=== PATIENT | female | born 1950 | race African-American/Black ===

== ENCOUNTER → 2017-11-30 | Outpatient (CLI) | payer MEDICARE, OTHER ==
[~2017-11-30] MED LIST: ACET-93 PO; ALBU8.5H2 IH; ALBU8.5H4 IH; ASP81CT PO; ASP81TEC PO; BENA1TAB4 PO; CARB15DR75 OP; CARB15DR75 OU; CARI350T PO; CEFD300C PO; CETI10TA17 PO; CIPR500T78 PO; EZET1TAB43 PO; FLC100T1 PO; FLUO10CA19 PO; FLUT9.9S NSEACH; GLBR5T PO; GLIM4TAB PO; GLMP4T PO; GUAI-150 PO; GUAI1TBM7 PO; HYDR-2889 PO; HYDR-3816 PO; HYDR1TAB66 PO; INSU100I10 SQ; INSU100V8 SQ; LBT200T PO; LISI1TAB10 PO; LISI1TAB8 PO; LORA10TA7 PO; MELO-195 PO; METO100T12 PO; MONT10TA21 PO; MTP50T PO; NEPA1.7D OD; NF-ESOM40C PO; NITR-65 PO; OXYC1TAB17 PO; PNT40TEC PO; PRED5DRO2I OD; TBR.3OP51 OD
--- NOTE | 2017-11-30 18:59 | Diagnostic Imaging Report ---
INDICATION: Pain. Two views were obtained. FINDINGS: The alignment is normal. There is no fracture or dislocation. There are mild degenerative changes. Soft tissues are unremarkable. IMPRESSION: Mild degenerative changes, otherwise unremarkable. Dictated by: Dictated on workstation # [id number]
== END ==
LOC: RAD 14:28
PROVIDERS: ATTEND Internal Medicine
DX: M16.11 Unilateral primary osteoarthritis, right hip (principal)
CPT/HCPCS: 73502

== ENCOUNTER 2018-06-01 09:54 | Emergency (ER) | payer MEDICARE, OTHER ==
[~2018-06-01] VITALS: Ht 154.9 cm; Wt 88.5 kg
[2018-06-01] MEDS ORDERED: D5 NS 1000 ML IV SOLUTION 1,000 ML IV ONE (10:30)
[2018-06-01 10:35] LABS: BASOPHILS # (AUTO) 0.1 10^3/uL (0.0-0.1); BASOPHILS % (AUTO) 1 % (0-10); EOSINOPHILS # (AUTO) 0.2 10^3/uL (0.0-0.3); EOSINOPHILS % (AUTO) 4 % (0-10); HEMATOCRIT 41 % (35-52); HEMOGLOBIN 13.2 G/DL (11.5-16.0); LYMPHOCYTES # (AUTO) 1.9 X 10^3 (1.0-4.0); LYMPHOCYTES % (AUTO) 34 % (12-44); MEAN CORPUSCULAR HEMOGLOBIN 27 PG (25-34); MEAN CORPUSCULAR HGB CONC 32 G/DL (32-36); MEAN CORPUSCULAR VOLUME 83 FL (80-99); MEAN PLATELET VOLUME 10.3 FL (7.4-10.4); MONOCYTES # (AUTO) 0.5 X 10^3 (0.0-1.0); MONOCYTES % (AUTO) 8 % (0-12); NEUTROPHILS % (AUTO) 54 % (42-75); PLATELET COUNT 231 10^3/uL (130-400); RED BLOOD COUNT 4.94 10^6/uL (4.35-5.85); RED CELL DISTRIBUTION WIDTH 12.9 % (10.0-14.5); WHITE BLOOD COUNT 5.6 10^3/uL (4.3-11.0)
[2018-06-01 10:47] LABS: ALANINE AMINOTRANSFERASE 14 U/L (0-55); ALBUMIN 4.2 GM/DL (3.2-4.5); ALKALINE PHOSPHATASE 91 U/L (40-136); BILIRUBIN,TOTAL 0.6 MG/DL (0.1-1.0); BUN/CREATININE RATIO 17; CALCIUM 9.8 MG/DL (8.5-10.1); CARBON DIOXIDE 25 MMOL/L (21-32); CHLORIDE 106 MMOL/L (98-107); GFR ESTIMATED 39; GLUCOSE 124 MG/DL (70-105); MAGNESIUM 1.9 MG/DL (1.8-2.4); POTASSIUM 3.8 MMOL/L (3.6-5.0); SODIUM 142 MMOL/L (135-145); TOTAL PROTEIN 7.6 GM/DL (6.4-8.2)
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
--- NOTE | 2018-06-01 11:02 | Diagnostic Imaging Report ---
CHEST 1 VIEW, AP/PA ONLY Indication: Weakness Comparison: 03/14/2016 Findings: No focal airspace disease in the visualized lungs. Please note that the posterior lower lobes are poorly evaluated by portable radiography. No pleural effusion or pneumothorax. Normal cardiomediastinal silhouette. Impression: No acute cardiopulmonary process by portable radiography. Dictated by: Dictated on workstation # [id number]
[2018-06-01 12:12] LABS: BILIRUBIN,URINE NEGATIVE (NEGATIVE); CLARITY,URINE SLIGHTLY CLOUDY; COLOR,URINE YELLOW; GLUCOSE, URINE (UA) NEGATIVE (NEGATIVE); KETONES,URINE NEGATIVE (NEGATIVE); LEUKOCYTE ESTERASE ,URINE 2+ (NEGATIVE); NITRITE,URINE POSITIVE (NEGATIVE); PH,URINE 6 (5-9); PROTEIN,URINE 1+ (NEGATIVE); UROBILINOGEN,URINE NORMAL (NORMAL)
[2018-06-01 12:21] LABS: BACTERIA,URINE LARGE /HPF
[2018-06-01] MEDS ORDERED: CIPR-226 PO (12:31)
[2018-06-01 12:48] VITALS: BP 173/86
== END 2018-06-01 12:48 | disposition home or self-care (01) ==
LOC: EDUNIT# 09:54 → ER 09:55
DX: R53.1 Weakness (principal); N39.0 Urinary tract infection, site not specified; N28.9 Disorder of kidney and ureter, unspecified; I10 Essential (primary) hypertension; K21.9 Gastro-esophageal reflux disease without esophagitis; E11.9 Type 2 diabetes mellitus without complications; Z87.448 Personal history of other diseases of urinary system; Z88.8 Allergy status to other drugs, medicaments and biological substances; Z91.048 Other nonmedicinal substance allergy status; Z82.49 Family history of ischemic heart disease and other diseases of the circulatory system; Z79.51 Long term (current) use of inhaled steroids; Z79.4 Long term (current) use of insulin; Z96.652 Presence of left artificial knee joint; Z90.710 Acquired absence of both cervix and uterus; Z87.01 Personal history of pneumonia (recurrent)
CPT/HCPCS: 36415; 71045; 80053; 81000; 82962; 83735; 84484; 85025; 87077; 87088; 87186; 93005; 93041

== ENCOUNTER 2018-08-02 11:16 | Emergency (ER) | payer OTHER, MEDICARE ==
[~2018-08-02] VITALS: Ht 154.9 cm; Wt 90.3 kg
[~2018-08-02 11:16] MED LIST changes: +CIPR-226 PO
[2018-08-02] MEDS ORDERED: ACETAMINOPHEN 500 MG TAB (TYLENOL) PO ONE (11:45)
--- NOTE | 2018-08-02 12:10 | NUR ---
FOOD TRAY SERVED TO PT
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
[2018-08-02 13:48] VITALS: BP 169/90
== END 2018-08-02 13:48 | disposition home or self-care (01) ==
LOC: EDUNIT# 11:16 → ER 11:17
DX: R20.0 Anesthesia of skin (principal); T45.7X5A Adverse effect of anticoagulant antagonists, vitamin K and other coagulants, initial encounter; E11.649 Type 2 diabetes mellitus with hypoglycemia without coma; J42 Unspecified chronic bronchitis; I10 Essential (primary) hypertension; K21.9 Gastro-esophageal reflux disease without esophagitis; Z88.1 Allergy status to other antibiotic agents; Z88.8 Allergy status to other drugs, medicaments and biological substances; Z79.4 Long term (current) use of insulin; Z90.710 Acquired absence of both cervix and uterus; Z87.01 Personal history of pneumonia (recurrent)
CPT/HCPCS: 82962

== ENCOUNTER → 2018-12-15 | Outpatient (CLI) | payer MEDICARE, OTHER ==
--- NOTE | 2018-12-15 14:25 | Diagnostic Imaging Report ---
PATIENT HISTORY: R05, COUGH. TECHNIQUE: Two views of the chest. COMPARISON: 06/01/2018. FINDINGS: The lung volumes are normal. No focal consolidation is seen. No large pleural effusion or pneumothorax is seen. The cardiomediastinal silhouette is normal in size and contour. No acute osseous abnormality is seen. IMPRESSION: No acute pulmonary abnormality seen. Dictated by: Dictated on workstation # [id number]
== END ==
LOC: RAD 11:11
PROVIDERS: ATTEND Internal Medicine
DX: R05 Cough (principal)
CPT/HCPCS: 71046

== ENCOUNTER 2018-12-16 14:58 | Observation (INO) | payer MEDICARE, OTHER ==
[~2018-12-16] VITALS: Ht 154.9 cm; Wt 90.3 kg
[2018-12-16] MEDS ORDERED: methylPREDNISolone 125 MG (Solu-MEDROL) VIAL IVP NR (15:15)
[2018-12-16 16:00] VITALS: BP 129/74
[2018-12-16 16:13] LABS: ABG BASE EXCESS 2.3 MMOL/L (-2.5-2.5); ABG OXYGEN SATURATION 94 % (94-100); ABG PCO2 44 MMHG (35-45); ABG PO2 66 MMHG (79-93); ABG TCO2 28.2 MMOL/L (21.0-31.0)
[2018-12-16 16:15] LABS: ALLENS TEST YES-POS; INSPIRED O2 RA; VENTILATOR NO
[2018-12-16] MEDS ORDERED: CATHETER FLUSH 10 ML SYR IV PRN (16:15)
[2018-12-16 16:16] LABS: PATIENT TEMP 97.6
--- NOTE | 2018-12-16 16:48 | Diagnostic Imaging Report ---
INDICATION: Wheezing COMPARISON: 12/15/2008 FINDINGS: Single frontal view of the chest demonstrates stable heart size and pulmonary vascularity. The lungs are well aerated and clear. No large pleural effusion or pneumothorax is seen. The visualized osseous structures show no acute abnormalities. IMPRESSION: 1. No acute cardiopulmonary process. Dictated by: Dictated on workstation # [id number]
[2018-12-16 17:00] VITALS: BP 104/72
--- NOTE | 2018-12-16 17:20 | Consultation-Cardiology ---
HPI-Cardiology Cardiology Consultation: Date of Consultation 12/16/18 Time Seen by a Provider: 18:10 Date of Admission Attending Physician Sharon Boo DO Admitting Physician Sharon Boo DO Consulting Physician MALA VILLANUEVA MD, MA, FACP, FACC, [facility] Physician requesting consult: Dr Boo HPI: Chief Complaint: Reason for consultation: Shortness of breath HPI 68 yo woman with increasing shortness of breath for the last several days. Has an intermittent cough that is mostly dry. Denies cp. Denies palp or syncope or significant leg swelling. Denies fever or chills. Has noted some wheezing with inspiration and expiration Review of Systems-Cardiology Review of Systems Constitutional: malaise, tiredness; No weight loss, No weight gain Eyes: No vision change Ears/Nose/Throat: No ear discharge, No nasal drainage, No recent hearing loss Respiratory: As described under HPI Cardiovascular: As described under HPI Gastrointestinal: No constipation, No diarrhea, No nausea, No vomiting Genitourinary: No dysuria, No hematuria, No urine frequency changes, No urine coloration changes Musculoskeletal: No back pain, No joint pain Skin: No rash, No ulcerations Psychiatric/Neurological: No seizure, No focal weakness, No syncope Hematologic: No bleeding abnormalities [id number] Hx Patient Social History Recent Foreign Travel: No Immunizations Up To Date Date of Pneumonia Vaccine: Jul 02, 2011 Date of Influenza Vaccine: Apr 29, 2014 Past Medical History PMH As described under Assessment. Family Medical History Family History: Cancer 03 FATHER (PROSTATE) Cataract 03 MOTHER Chest pain 03 MOTHER Congestive heart failure 03 FATHER Family history: Arthritis 03 FATHER 03 MOTHER Family history: Asthma 03 MOTHER Family history: Hypertension 03 FATHER 03 MOTHER Heart disease 03 FATHER Myocardial infarction 03 MOTHER Prostate cancer 03 FATHER Stroke 03 MOTHER No Family History of: Abdominal aortic aneurysm Trino's disease Alcoholism Aphasia Cancer of colon Congenital heart disease Cystic fibrosis Dementia Dysphagia Family history: Allergy Family history: Alzheimer's disease Family history: Breast disease Family history: Cardiovascular disease Family history: Coronary thrombosis Family history: Diabetes mellitus Family history: Gastrointestinal disease Family history: Glaucoma Family history: Osteoporosis Family history: Thyroid disorder Headache Hearing loss Hereditary disease History of - anemia History of - disorder History of - respiratory disease History of drug abuse Human immunodeficiency virus (HIV) seropositivity Hypercholesterolemia Infertile Kidney disease Malignant neoplasm of lung Parkinson's disease Psychotic disorder Seizure disorder Tuberculosis Visual impairment Allergies and Home Medications Allergies Coded Allergies: cefuroxime (Verified Allergy, Unknown, PATIENT HAS RECEIVED ROCEPHIN W/O ISSUE, 03/14/16) Uncoded Allergies: PAPER TAPE (Adverse Reaction, Unknown, 09/08/14) Home Medications Acetaminophen 500 Mg Tablet, 500-1,500 MG PO Q6H PRN for PAIN, (Reported) TAKES 1-3 (500 MG) TABLETS Albuterol 8.5 Gm Hfa.aer.ad, 2 PUFF IH Q6H PRN for WHEEZING, (Reported) Carboxymethylcellulose Sodium 15 Ml Drops, 1 DROP OU HS PRN for DRY EYES, (Reported) Carisoprodol 350 Mg Tablet, 350 MG PO BID PRN for MUSCLE SPASMS, (Reported) Ciprofloxacin HCl 250 Mg Tablet, 250 MG PO BID Prescribed by: CIARA RUFFIN on 06/01/18 1231 Fluticasone Propionate 9.9 Ml [place].susp, 1 SPRAY NSEACH HS, (Reported) Glimepiride 4 Mg Tablet, 8 MG PO HS, (Reported) TAKES 2 (4 MG) TABLETS Lisinopril/Hydrochlorothiazide 1 Tab Tablet, 2 TAB PO HS, (Reported) Loratadine 10 Mg Tablet, 10 MG PO HS, (Reported) Meloxicam 15 Mg Tablet, 15 MG PO HS, (Reported) Metoprolol Tartrate 100 Mg Tablet, 100 MG PO HS, (Reported) Montelukast Sodium 10 Mg Tablet, 10 MG PO HS, (Reported) Patient Home Medication List Home Medication List Reviewed: Yes Physical Exam-Cardiology Physical Exam Vital Signs/I&O 12/16/18 12/16/18 12/16/18 12/16/18 15:37 16:00 17:00 17:02 Temp 97.6 Pulse 65 73 66 Resp 18 21 B/P (MAP) 129/74 (92) 104/72 (83) Pulse Ox 97 95 97 O2 Delivery Room Air Room Air Room Air Capillary Refill : Constitutional: AAO x 3, well-developed, well-nourished HEENT: PERRL, EOMI, hearing is well preserved Neck: carotid pulses are 2 + bilaterally, with good upstrokes Respiratory: No accessory muscle use; other (good bilat air entry) Cardiovascular: regular rate-rhythm, S1 and S2, systolic murmur (faint NANCY at card base) Gastrointestinal: No tender; soft; No guarding, No rebound; audible bowel sounds Extremities: No clubbing, No cyanosis, No significant edema Neurologic/Psychiatric: oriented x 3, grossly intact, power is 5/5 both on sides Skin: No rash on exposed areas, No ulcerations on exposed areas Data Review Labs Laboratory Tests 12/16/18 16:05: Blood Gas Puncture Site L BRACH, Blood Gas Patient Temperature 97.6, Arterial Blood pH 7.40, Arterial Blood Partial Pressure CO2 44, Arterial Blood Partial Pressure O2 66L, Arterial Blood HCO3 27, Arterial Blood Total CO2 28.2, Arterial Blood Oxygen Saturation 94, Arterial Blood Base Excess 2.3, Malachi Test YES-POS, Blood Gas Ventilator Setting NO, Blood Gas Inspired Oxygen RA 12/16/18 17:19: Glucometer 131H 12/16/18 17:20: White Blood Count 7.3, Red Blood Count 4.57, Hemoglobin 12.2, Hematocrit 38, Mean Corpuscular Volume 84, Mean Corpuscular Hemoglobin 27, Mean Corpuscular Hemoglobin Concent 32, Red Cell Distribution Width 12.7, Platelet Count 208, Mean Platelet Volume 10.2, Neutrophils (%) (Auto) 58, Lymphocytes (%) (Auto) 32, Monocytes (%) (Auto) 7, Eosinophils (%) (Auto) 2, Basophils (%) (Auto) 1, Neutrophils # (Auto) 4.3, Lymphocytes # (Auto) 2.3, Monocytes # (Auto) 0.5, Eosinophils # (Auto) 0.2, Basophils # (Auto) 0.1, D-Dimer 0.47, Sodium Level 140, Potassium Level 3.3L, Chloride Level 103, Carbon Dioxide Level 28, Anion Gap 9, Blood Urea Nitrogen 26H, Creatinine 1.65H, Estimat Glomerular Filtration Rate 37, BUN/Creatinine Ratio 16, Glucose Level 122H, Calcium Level 9.7, Corrected Calcium 9.6, Total Bilirubin 0.4, Aspartate Amino Transf (AST/SGOT) 13, Alanine Aminotransferase (ALT/SGPT) 12, Alkaline Phosphatase 99, Troponin I < 0.028, B-Type Natriuretic Peptide 29.5, Total Protein 7.4, Albumin 4.1 Laboratory Tests 12/16/18 17:20 A/P-Cardiology Assessment/Admission Diagnosis Multifactorial dyspnea Acute bronchitis vs pneumonia, managed by the Medical Service Ac kidney injury (LAKESHA) 2 and hypokalemia (probably due to diuretics/vol depletion) Mild CAD and normal LVEF (60%) on card cath of 06/01/12 Echo of September 2015 reported LVEF 60%, mild MR & TR, normal PASP H/o hypertension H/o DM II Discussion and Recomendations * iv fluids * Replenish K * Monitor labs * Echo to eval for structural heart disease * Management of pulmonary disease is with Dr Boo Clinical Quality Measures DVT/VTE Risk/Contraindication: Risk Factor Score Per Nursin RFS Level Per Nursing on Admit: 3=High MALA VILLANUEVA MD FACP FACC [facility] Dec 16, 2018 17:20
[2018-12-16 17:28] LABS: BASOPHILS # (AUTO) 0.1 10^3/uL (0.0-0.1); BASOPHILS % (AUTO) 1 % (0-10); EOSINOPHILS # (AUTO) 0.2 10^3/uL (0.0-0.3); EOSINOPHILS % (AUTO) 2 % (0-10); HEMATOCRIT 38 % (35-52); HEMOGLOBIN 12.2 G/DL (11.5-16.0); LYMPHOCYTES # (AUTO) 2.3 X 10^3 (1.0-4.0); LYMPHOCYTES % (AUTO) 32 % (12-44); MEAN CORPUSCULAR HEMOGLOBIN 27 PG (25-34); MEAN CORPUSCULAR HGB CONC 32 G/DL (32-36); MEAN CORPUSCULAR VOLUME 84 FL (80-99); MEAN PLATELET VOLUME 10.2 FL (7.4-10.4); MONOCYTES # (AUTO) 0.5 X 10^3 (0.0-1.0); MONOCYTES % (AUTO) 7 % (0-12); NEUTROPHILS # (AUTO) 4.3 X 10^3 (1.8-7.8); NEUTROPHILS % (AUTO) 58 % (42-75); PLATELET COUNT 208 10^3/uL (130-400); RED CELL DISTRIBUTION WIDTH 12.7 % (10.0-14.5); WHITE BLOOD COUNT 7.3 10^3/uL (4.3-11.0)
[2018-12-16] MEDS: inSUlin ASPART (NovoLOG) 1 UNIT/0.01 ML (CHARGE PER UNIT) SC SCH ×2 (17:41→21:12)
[2018-12-16] MEDS ORDERED: ALPRAZolam 0.5 MG (XANAX) TAB PO PRN (17:45)
[2018-12-16] MEDS ORDERED: ACETAMINOPHEN 500 MG TAB (TYLENOL) PO PRN (17:45)
[2018-12-16] MEDS ORDERED: DOCUSATE SODIUM 100 MG (COLACE) CAP PO PRN (17:45)
[2018-12-16] MEDS ORDERED: ONDANSETRON 4 MG/2 ML (SDV) Z0FRAN IVP PRN (17:45)
[2018-12-16] MEDS ORDERED: MELATONIN 3 MG TABLET PO PRN (17:45)
[2018-12-16 17:50] LABS: ALANINE AMINOTRANSFERASE 12 U/L (0-55); ALBUMIN 4.1 GM/DL (3.2-4.5); ALKALINE PHOSPHATASE 99 U/L (40-136); BILIRUBIN,TOTAL 0.4 MG/DL (0.1-1.0); BUN/CREATININE RATIO 16; CALCIUM 9.7 MG/DL (8.5-10.1); CARBON DIOXIDE 28 MMOL/L (21-32); CHLORIDE 103 MMOL/L (98-107); CREATININE SERUM 1.65 MG/DL (0.60-1.30); GFR ESTIMATED 37; GLUCOSE 122 MG/DL (70-105); POTASSIUM 3.3 MMOL/L (3.6-5.0); SODIUM 140 MMOL/L (135-145); TOTAL PROTEIN 7.4 GM/DL (6.4-8.2)
[2018-12-16] MEDS: methylPREDNISolone 40 MG/ML (Solu-MEDROL) VIAL IV SCH ×2 (18:12→23:20)
--- NOTE | 2018-12-16 18:19 | NUR ---
XOCHILT FOOTE admitted to room CU6-1, with an admitting diagnosis of sob, on 12/16/18 from ICU via wheelchair, accompanied by staff.XOCHILT FOOTE introduced to surroundings, call light, bed controls, phone, TV, temperature control, lights, meal times, smoking policy, visitor policy, side rail policy, bathrooms and showers. Patient Rights given to patient in the handbook. XOCHILT FOOTE verbalizes understanding that [facility] is not responsible for the loss or damage to any personal effects or valuables that are kept in the patients posession during their hospitalization. The following Patient Care Plans and discharge were discussed with the patient and family present (). XOCHILT FOOTE verbalizes understanding of Interdisciplinary Patient Education. Patient and family were informed about the Rapid Response Team and its purpose.
[2018-12-16] MEDS ORDERED: KCL 20 MEQ TAB (K-DUR) PO NR (19:00)
[2018-12-16] MEDS: NS IV 1000 ML 1,000 ML IV SCH (19:23)
[2018-12-16] MEDS: RT-BUDESONIDE NEBS 0.5 MG/2ML (PULMICORT) AMP INH SCH (19:24)
[2018-12-16] MEDS: RT-ALBUTEROL SULF 2.5 MG/3 ML PRE-MIX VIAL INH SCH ×2 (19:24→22:33)
--- OUTSIDE RECORDS SUMMARY | 2018-12-16 19:53 | XMS REPORT | Continuity of Care Document ---
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 Emergency JOSEFINA PERALTA [facility] ER FACIAL NUMBNESS [id number] 06/01/2018 09:55:00 06/01/2018 12:48:00 DIS Emergency CIARA SILVA MD [facility] ER DIZZINESS [id number] 11/30/2017 14:28:00 11/30/2017 23:59:59 CLS Outpatient KAREN BERMUDEZ DO [facility] RAD PAIN IN RIGHT HIP [id number] 03/13/2016 15:54:00 03/15/2016 09:32:00 DIS Inpatient KAREN BERMUDEZ DO [facility] 4TH PNEUMONIA [id number] 02/01/2016 09:11:00 02/01/2016 23:59:59 CLS Outpatient BEN ROY MD [facility] RAD CONGESTION [id number] 11/14/2015 07:16:00 11/14/2015 23:59:59 CLS Outpatient CHAVA GUZMAN DO [facility] RT COUGH,EXCESSIVE SLEEPINESS,SNORING, OBESITY [id number] 10/22/2015 11:07:00 10/22/2015 23:59:59 CLS Outpatient BEN ROY MD [facility] CARD ABNORMAL CHEST XRAY, PULMONARY HTN [id number] 10/04/2015 14:26:00 10/04/2015 23:59:59 CLS Outpatient BEN ROY MD [facility] RAD INTRACTABLE COUGH,HX OF PNEUMONIA [id number] 12/04/2014 11:08:00 12/04/2014 13:00:00 DIS Emergency KESHA MOORE DO [facility] ER LOW BS [id number] 10/12/2014 10:22:00 10/12/2014 14:46:00 DIS Outpatient CHAVA HAILE PA-C [facility] REHAB S/P L TKA [id number] 04/18/2014 18:28:00 04/18/2014 20:13:00 DIS Emergency SOCO BILLINGSLEY, POLY Mahmood [facility] ER FALL; L HIP PAIN [id number] 10/18/2013 10:21:00 10/20/2013 08:50:00 DIS Inpatient MANUELA BILLINGSLEY, BEN Paul [facility] 4TH PNEUMONIA,HYPOGLYCIMIA [id number] 07/23/2013 03:59:00 07/23/2013 05:20:00 DIS Emergency KUN BILLINGSLEY, INDIRA Vega [facility] ER L EYE PAIN [id number] 02/23/2013 21:00:00 02/23/2013 23:32:00 DIS Emergency KESHA MOORE DO [facility] ER WEAKNESS [id number] 12/15/2018 11:11:00 ACT Outpatient KAREN BERMUDEZ DO [facility] RAD COUGH [id number] 09/09/2014 13:14:00 Document Registration [id number] 02/19/2011 15:22:00 Document Registration [id number] 02/19/2011 11:12:00 Document Registration [email or web address] 12/04/2014 11:08:52 ACT Document Registration
[2018-12-16 20:00] VITALS: BP 148/83
[2018-12-16] MEDS: HYDROCODONE/CHLOR 10MG/5 ML (TUSSIONEX SUSP) 5ML UDC PO SCH (20:31)
[2018-12-16] MEDS: SENNA W/DOCUSATE (SENOKOT S) TABLET PO SCH (20:31)
[2018-12-16] MEDS ORDERED: methylPREDNISolone 125 MG (Solu-MEDROL) VIAL IM NR (21:00)
[2018-12-16] MEDS: CATHETER FLUSH 10 ML SYR IV SCH (21:13)
[2018-12-17] VITALS: BP 147/69
[2018-12-17] MEDS: RT-ALBUTEROL SULF 2.5 MG/3 ML PRE-MIX VIAL INH SCH ×3 (03:13→13:15)
[2018-12-17 04:08] VITALS: BP 132/61
[2018-12-17] MEDS: CATHETER FLUSH 10 ML SYR IV SCH (05:06)
[2018-12-17] MEDS: methylPREDNISolone 40 MG/ML (Solu-MEDROL) VIAL IV SCH (05:06)
[2018-12-17] MEDS: NS IV 1000 ML 1,000 ML IV SCH (05:06)
[2018-12-17 06:11] LABS: BASOPHILS % (AUTO) 0 % (0-10); EOSINOPHILS % (AUTO) 0 % (0-10); HEMATOCRIT 39 % (35-52); HEMOGLOBIN 12.6 G/DL (11.5-16.0); LYMPHOCYTES # (AUTO) 0.6 X 10^3 (1.0-4.0); LYMPHOCYTES % (AUTO) 11 % (12-44); MEAN CORPUSCULAR HEMOGLOBIN 26 PG (25-34); MEAN CORPUSCULAR HGB CONC 32 G/DL (32-36); MEAN CORPUSCULAR VOLUME 82 FL (80-99); MEAN PLATELET VOLUME 10.5 FL (7.4-10.4); MONOCYTES % (AUTO) 0 % (0-12); NEUTROPHILS # (AUTO) 4.9 X 10^3 (1.8-7.8); NEUTROPHILS % (AUTO) 89 % (42-75); PLATELET COUNT 193 10^3/uL (130-400); RED CELL DISTRIBUTION WIDTH 12.6 % (10.0-14.5); WHITE BLOOD COUNT 5.5 10^3/uL (4.3-11.0)
[2018-12-17] MEDS: inSUlin ASPART (NovoLOG) 1 UNIT/0.01 ML (CHARGE PER UNIT) SC SCH (06:21)
--- NOTE | 2018-12-17 06:22 | NUR ---
PATIENT'S BLOOD SUGAR THIS MORNING IS 453. PATIENT REFUSING SLIDING SCALE INSULIN. PATIENT DID EAT A SNACK AT APPROXIMATELY 0400. DR BERMUDEZ NOTIFIED OF BLOOD SUGAR AND PATIENT REFUSAL OF INSULIN. NNO.
[2018-12-17 06:35] LABS: ALBUMIN 3.9 GM/DL (3.2-4.5); BILIRUBIN,TOTAL 0.4 MG/DL (0.1-1.0); CALCIUM 9.4 MG/DL (8.5-10.1); CREATININE SERUM 1.62 MG/DL (0.60-1.30); POTASSIUM 4.4 MMOL/L (3.6-5.0); TOTAL PROTEIN 7.2 GM/DL (6.4-8.2)
[2018-12-17] MEDS ORDERED: inSUlin ASPART (NovoLOG) 1 UNIT/0.01 ML (CHARGE PER UNIT) SC NR (07:15)
[2018-12-17 08:00] VITALS: BP 163/77
[2018-12-17] MEDS: RT-BUDESONIDE NEBS 0.5 MG/2ML (PULMICORT) AMP INH SCH ×2 (08:10→13:14)
[2018-12-17] MEDS ORDERED: LISI1TAB8 PO (08:44)
[2018-12-17] MEDS ORDERED: POLY1DRO OU (08:44)
[2018-12-17] MEDS ORDERED: MELO15TA39 PO (08:44)
[2018-12-17] MEDS ORDERED: RT-ALBUINH IH (08:44)
[2018-12-17] MEDS ORDERED: GLIM4TAB PO (08:44)
[2018-12-17] MEDS: SENNA W/DOCUSATE (SENOKOT S) TABLET PO SCH (09:07)
[2018-12-17] MEDS: HYDROCODONE/CHLOR 10MG/5 ML (TUSSIONEX SUSP) 5ML UDC PO SCH (09:08)
--- NOTE | 2018-12-17 09:42 | NUR ---
SPOKE WITH PATIENT ABOUT HER MEDICATIONS SHE WAS ABLE TO LIST THEM, I ALSO CALLED RAKESH TO VERIFY. RAKESH FILLED: 08-11-18 GLIMEPIRIDE 4 MG BID #180 (PT INDICATED HER DOSE DECREASED TO QD) 08-11-18 LISINOPRIL /HCTZ 20/12.5MG BID #180 08-11-18 METOPROLOL TART 100MG #90/90 DAY SUPPLY- IF MORNING BLOOD PRESSURE IS OVER 140 SHE TAKES 1/2 TABLET IN THE MORNING AND 1/2 TABLET AT BEDTIME- IF BP IS NORMAL SHE TAKE A WHOLE TABLET AT BEDTIME 01-28-18 SOMA 350MG #30 BID (TAKES HS PRN) PATIENT REPORTS TAKING THE FOLLOWING MEDICATIONS HOWEVER RAKESH DID NOT HAVE RECENT FILL DATES: FLONASE 2 SPRAYS EACH NOSTRIL DAILY PRN LORATADINE 10MG ONCE DAILY PRN MELOXICAM 15MG 1 TABLET ONCE DAILY FOR 2 WEEKS, THEN STOP FOR 2 WEEKS THEN REPEAT MONTELUKAST 10MG ONCE DAILY PRN ALBUTEROL INHALER 2 PUFFS PRN OTC MEDICATIONS: TYLENOL 500MG- 2 TABLETS EVERY 6 HOURS NEEDED REPHRESH EYE DROPS 1 DROP IN BOTH EYES THREE TIMES DAILY NEEDED FOR DRY EYES
--- NOTE | 2018-12-17 11:05 | Short Stay Summary-Hospitalist ---
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 [facility] who has a past medical history of asthma and diabetes who presented to my office with shortness of breath and cough and severe difficulty breathing. She was found to have respiratory insufficiency so she was admitted to the ICU for observation but improved immensely with breathing treatments. She was unable to have an IV placed due to poor vascular access so Solu-Medrol was given IM. Cardiology saw her in consultation for cardiac risk stratification. Patient feels much better has no coughing does need her muscle relaxant for her back and did tell me that she was very stressed out and disturbed since her son announced that he was leaving his family and moving in with a new female partner. She was very upset about this seemed to cause respiratory insufficiency. Overall blood sugars remain elevated due to Solu-Medrol but she will close follow-up with me in my clinic after cardiology completes their testing today. Source: patient Exam Limitations: no limitations Date Seen 12/17/18 Time Seen by a Provider: 10:30 Attending Physician Sharon Boo DO PCP Sharon Boo DO Referring Physician Date of Admission Dec 16, 2018 at 15:28 Home Medications & Allergies Home Medications Reviewed patient Home Medication Reconciliation performed by pharmacy medication reconciliations land mobile radio technician and/or nursing. Patients Allergies have been reviewed. 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) Smoking Status: Never a Smoker Recent Foreign Travel: No Contact w/other who traveled: No Recent Hopitalizations: No Immunizations Up To Date Date of Pneumonia Vaccine: Jul 02, 2011 Date of Influenza Vaccine: Apr 29, 2014 Past Medical History Surgeries: Cardiac, Eye Surgery, Gallbladder, Hysterectomy, Joint Replacement, Orthopedic Respiratory: Asthma, Pneumonia Cardiac: Hypertension Reproductive: No Sexually Transmitted Disease: No Hysterectomy Genitourinary: Bladder Infection Gastrointestinal: Gastroesophageal Reflux Musculoskeletal: Chronic Back Pain Endocrine: Diabetes, Insulin dep HEENT: Cataract History of Blood Disorders: No Family History Cancer 03 FATHER (PROSTATE) Cataract 03 MOTHER Chest pain 03 MOTHER Congestive heart failure 03 FATHER Family history: Arthritis 03 FATHER 03 MOTHER Family history: Asthma 03 MOTHER Family history: Hypertension 03 FATHER 03 MOTHER Heart disease 03 FATHER Myocardial infarction 03 MOTHER Prostate cancer 03 FATHER Stroke 03 MOTHER No Family History of: Abdominal aortic aneurysm [place]'s disease Alcoholism Aphasia Cancer of colon Congenital heart disease Cystic fibrosis Dementia Dysphagia Family history: Allergy Family history: Alzheimer's disease Family history: Breast disease Family history: Cardiovascular disease Family history: Coronary thrombosis Family history: Diabetes mellitus Family history: Gastrointestinal disease Family history: Glaucoma Family history: Osteoporosis Family history: Thyroid disorder Headache Hearing loss Hereditary disease History of - anemia History of - disorder History of - respiratory disease History of drug abuse Human immunodeficiency virus (HIV) seropositivity Hypercholesterolemia Infertile Kidney disease Malignant neoplasm of lung Parkinson's disease Psychotic disorder Seizure disorder Tuberculosis Visual impairment Review of Systems Constitutional: see HPI, weakness EENTM: no symptoms reported Respiratory: short of breath Cardiovascular: no symptoms reported Gastrointestinal: no symptoms reported Genitourinary: no symptoms reported Musculoskeletal: no symptoms reported Skin: no symptoms reported Psychiatric/Neurological: Anxiety All Other Systems Reviewed Negative Unless Noted: Yes Physical Exam Physical Exam Vital Signs Vital Signs - First Documented 12/16/18 12/16/18 15:37 16:00 Temp 97.6 Pulse 65 Resp 18 B/P (MAP) 129/74 (92) Pulse Ox 97 O2 Delivery Room Air Capillary Refill : Height, Weight, BMI Height: 5'1.00" Weight: 199lbs. 1.6oz. 90.559438mq; 37.6 BMI Method:Stated General Appearance: No Apparent Distress, WD/WN, Chronically ill Eyes: Bilateral Eye Normal Inspection, Bilateral Eye PERRL HEENT: PERRL/EOMI, TMs Normal, Normal ENT Inspection, Pharynx Normal Neck: Full Range of Motion, Normal Inspection, Non Tender, Supple, Carotid Bruit Respiratory: Chest Non Tender, Lungs Clear, Normal Breath Sounds, No Accessory Muscle Use, No Respiratory Distress, Accessory Muscle Use (now resolved), Respiratory Distress (now resolved), Wheezing (now resolved) Cardiovascular: Regular Rate, Rhythm, No Edema, No Gallop, No JVD, No Murmur, Normal Peripheral Pulses Gastrointestinal: Normal Bowel Sounds, No Organomegaly, No Pulsatile Mass, Non Tender, Soft Back: Normal Inspection, No CVA Tenderness, No Vertebral Tenderness Extremity: Normal Capillary Refill, Normal Inspection, Normal Range of Motion, Non Tender, No Calf Tenderness, No Pedal Edema Neurologic/Psychiatric: Alert, Oriented x3, No Motor/Sensory Deficits, Normal Mood/Affect Skin: Normal Color, Warm/Dry Lymphatic: No Adenopathy Results Results/Procedures Labs Laboratory Tests 12/16/18 17:20 12/17/18 05:51 Patient resulted labs reviewed. Short Stay Diagnosis Discharge Diagnosis-Short Stay Admission Diagnosis Assessment: Severe respiratory insufficiency now resolved Asthma exacerbation now resolved Hyperglycemia due to steroids Hypertension Hyperlipidemia Pneumonia in the past chest x-ray negative Final Discharge Diagnosis Assessment: Severe respiratory insufficiency now resolved Asthma exacerbation now resolved Hyperglycemia due to steroids Hypertension Hyperlipidemia Pneumonia in the past chest x-ray negative Conclusion Plan Plan: Discharge home once cardiology has completed her testing for risk stratification Appreciate cardiology Respiratory insufficiency completely resolved Diagnosis/Problems Diagnosis/Problems (1) Wheezing Status: Acute (2) Acute hyperglycemia Status: Acute (3) Diabetes mellitus Status: Chronic Qualifiers: Qualified Codes: E11.9 - Type 2 diabetes mellitus without complications (4) Asthma attack Status: Acute Qualifiers: (5) Generalized weakness Status: Acute Clinical Quality Measures DVT/VTE Risk/Contraindication: Risk Factor Score Per Nursin RFS Level Per Nursing on Admit: 3=High SHARON BOO DO Dec 17, 2018 11:05
[2018-12-17] MEDS ORDERED: RT-ALBUTEROL SULF 2.5 MG/3 ML PRE-MIX VIAL IH PRN (11:15)
[2018-12-17] MEDS ORDERED: LORATADINE (CLARITIN) 10 MG TAB PO PRN (11:15)
[2018-12-17] MEDS ORDERED: inSUlin (REGULAR) HUMAN 1 UNIT/0.01 ML (CHARGE PER UNIT) SC NR (11:15)
[2018-12-17] MEDS ORDERED: MELOXICAM 7.5 MG (MOBIC) TABLET PO SCH (11:45)
[2018-12-17] MEDS ORDERED: ACETAMINOPHEN 500 MG TAB (TYLENOL) PO PRN (11:45)
[2018-12-17] MEDS ORDERED: CARISOPRODOL 350 MG (SOMA) TAB PO PRN (11:45)
[2018-12-17] MEDS ORDERED: ARTIFICAL TEARS 0.4 ML UNIT DOSE (REFRESH PLUS) OU PRN (11:45)
[2018-12-17 12:00] VITALS: BP 163/77
--- NOTE | 2018-12-17 13:15 | NUR ---
patient did not get her Pulmicort right after her 0600 Albuterol svn bt due to RT was called away to go to CT with a critical patient from ICU; patient also did not get her 1000 due to RT's both were with a critical patient that was getting intubated and then RT Brunilda had to go down to CT with him again.
[2018-12-17 14:16] VITALS: BP 163/77
--- NOTE | 2018-12-17 15:28 | Progress Note-Cardiology ---
Cardiology SOAP Progress Note Subjective: Shortness of breath better No cp or palp or syncope Objective: I&O/Vital Signs 12/17/18 12/17/18 12/17/18 12/17/18 03:48 04:08 08:00 08:00 Temp 97.8 98.1 Pulse 96 92 Resp 18 18 B/P (MAP) 132/61 (84) 163/77 (105) Pulse Ox 93 97 O2 Delivery Room Air Room Air Room Air Room Air 12/17/18 12/17/18 12/17/18 08:10 12:00 14:16 Temp 98.1 Pulse 92 92 Resp 18 18 B/P (MAP) 163/77 (105) 163/77 Pulse Ox 94 97 97 O2 Delivery Room Air Room Air Room Air 12/17/18 00:00 Intake Total 700 ml Balance 700 ml Weight (Pounds): 199 Weight (Ounces): 1.6 Weight (Calculated Kilograms): 90.189911 Constitutional: AAO x 3, well-developed, well-nourished Respiratory: No accessory muscle use; other (good bilat air entry) Cardiovascular: regular rate-rhythm, S1 and S2, systolic murmur (faint NANCY at card base) Gastrointestional: No tender; soft; No guarding, No rebound; audible bowel sounds Extremities: No clubbing, No cyanosis, No significant edema Neurologic/Psychiatric: oriented x 3, grossly intact, power is 5/5 both on sides Skin: No rash on exposed areas, No ulcerations on exposed areas Results/Procedures: Labs Laboratory Tests 12/16/18 16:05: Blood Gas Puncture Site L BRACH, Blood Gas Patient Temperature 97.6, Arterial Blood pH 7.40, Arterial Blood Partial Pressure CO2 44, Arterial Blood Partial Pressure O2 66L, Arterial Blood HCO3 27, Arterial Blood Total CO2 28.2, Arterial Blood Oxygen Saturation 94, Arterial Blood Base Excess 2.3, Malachi Test YES-POS, Blood Gas Ventilator Setting NO, Blood Gas Inspired Oxygen RA 12/16/18 17:19: Glucometer 131H 12/16/18 17:20: White Blood Count 7.3, Red Blood Count 4.57, Hemoglobin 12.2, Hematocrit 38, Mean Corpuscular Volume 84, Mean Corpuscular Hemoglobin 27, Mean Corpuscular Hemoglobin Concent 32, Red Cell Distribution Width 12.7, Platelet Count 208, Mean Platelet Volume 10.2, Neutrophils (%) (Auto) 58, Lymphocytes (%) (Auto) 32, Monocytes (%) (Auto) 7, Eosinophils (%) (Auto) 2, Basophils (%) (Auto) 1, Neutrophils # (Auto) 4.3, Lymphocytes # (Auto) 2.3, Monocytes # (Auto) 0.5, Eosinophils # (Auto) 0.2, Basophils # (Auto) 0.1, D-Dimer 0.47, Sodium Level 140, Potassium Level 3.3L, Chloride Level 103, Carbon Dioxide Level 28, Anion Gap 9, Blood Urea Nitrogen 26H, Creatinine 1.65H, Estimat Glomerular Filtration Rate 37, BUN/Creatinine Ratio 16, Glucose Level 122H, Calcium Level 9.7, Corrected Calcium 9.6, Total Bilirubin 0.4, Aspartate Amino Transf (AST/SGOT) 13, Alanine Aminotransferase (ALT/SGPT) 12, Alkaline Phosphatase 99, Troponin I < 0.028, B-Type Natriuretic Peptide 29.5, Total Protein 7.4, Albumin 4.1 12/16/18 20:56: Glucometer 131H 12/17/18 05:51: White Blood Count 5.5, Red Blood Count 4.80, Hemoglobin 12.6, Hematocrit 39, Mean Corpuscular Volume 82, Mean Corpuscular Hemoglobin 26, Mean Corpuscular Hemoglobin Concent 32, Red Cell Distribution Width 12.6, Platelet Count 193, Mean Platelet Volume 10.5H, Neutrophils (%) (Auto) 89H, Lymphocytes (%) (Auto) 11L, Monocytes (%) (Auto) 0, Eosinophils (%) (Auto) 0, Basophils (%) (Auto) 0, Neutrophils # (Auto) 4.9, Lymphocytes # (Auto) 0.6L, Monocytes # (Auto) 0.0, Eosinophils # (Auto) 0.0, Basophils # (Auto) 0.0, Sodium Level 132L, Potassium Level 4.4, Chloride Level 98, Carbon Dioxide Level 19L, Anion Gap 15H, Blood Urea Nitrogen 30H, Creatinine 1.62H, Estimat Glomerular Filtration Rate 38, BUN/Creatinine Ratio 19, Glucose Level 590*H, Calcium Level 9.4, Corrected Calcium 9.5, Total Bilirubin 0.4, Aspartate Amino Transf (AST/SGOT) 10, Alanine Aminotransferase (ALT/SGPT) 15, Alkaline Phosphatase 121, Total Protein 7.2, Albumin 3.9 12/17/18 05:56: Glucometer 453*H 12/17/18 06:59: Glucometer 578*H 12/17/18 11:54: Glucometer 381H Laboratory Tests 12/16/18 17:20 12/17/18 05:51 A/P: Assessment: Multifactorial dyspnea Acute bronchitis vs pneumonia, managed by the Medical Service Ac kidney injury (LAKESHA) 2 and hypokalemia (probably due to diuretics/vol depletion), unchanged, managed by Dr Boo Uncontrolled DM II, managed by Dr Boo Mild CAD and normal LVEF (60%) on card cath of 06/01/12 Echo of 12/17/18: LVEF 75-80%, mild conc LVH, grade 1 lee dysfunction, PASP 30 mmHg H/o hypertension Plan: * Cardiac status is clinically stable * Multiple medical issues (see above) being managed by MALA Sanchez MD FACP FAC CCDS Dec 17, 2018 15:28
[2018-12-17] MEDS ORDERED: meTOprolol TARTRATE 50 MG (LOPRESSOR) TAB PO SCH (21:00)
[2018-12-17] MEDS ORDERED: lisINopril 20 MG (PRINIVIL) TABLET PO SCH (21:00)
[2018-12-17] MEDS ORDERED: MONTELUKAST 10 MG (SINGULAIR) TAB PO PRN (21:00)
[2018-12-18] MEDS ORDERED: GLIMEPIRIDE 4 MG (AMARYL) TAB PO SCH (06:30)
[2018-12-18] MEDS ORDERED: FLUTICASONE NASAL SPRAY (FLONASE) 16 GM BTL NS PRN (21:00)
== END 2018-12-17 14:16 | disposition home or self-care (01) ==
LOC: ICU 15:28 → 4TH 17:50
PROVIDERS: ADMIT Internal Medicine; ATTEND Internal Medicine
DX: J45.901 Unspecified asthma with (acute) exacerbation (principal); R06.89 Other abnormalities of breathing; E11.65 Type 2 diabetes mellitus with hyperglycemia; T38.0X5A Adverse effect of glucocorticoids and synthetic analogues, initial encounter; N17.9 Acute kidney failure, unspecified; E87.6 Hypokalemia; I25.10 Atherosclerotic heart disease of native coronary artery without angina pectoris; I10 Essential (primary) hypertension; E78.5 Hyperlipidemia, unspecified; K21.9 Gastro-esophageal reflux disease without esophagitis; R53.1 Weakness; Z87.01 Personal history of pneumonia (recurrent); Z79.84 Long term (current) use of oral hypoglycemic drugs; Z79.899 Other long term (current) drug therapy
CPT/HCPCS: 36415; 71045; 80053; 82805; 82962; 83880; 84484; 85025; 85379; 93306; 94640; 94664; 94760

== ENCOUNTER 2019-06-15 12:59 | Emergency (ER) | payer MEDICARE, OTHER ==
[~2019-06-15] VITALS: Ht 155 cm; Wt 88.6 kg
[~2019-06-15 12:59] MED LIST changes: +MELO15TA39 PO; +POLY1DRO OU; +RT-ALBUINH IH
[2019-06-15] MEDS ORDERED: DEXAMETHASONE 10 MG/ML (DECADRON) 1 ML VIAL IM ONE (14:00)
--- NOTE | 2019-06-15 14:53 | ED Cough/URI ---
General Chief Complaint: Cough/Cold/Flu Symptoms Stated Complaint: SORE THROAT, COUGH FOR A WEEK Nursing Triage Note: Pt amb to triage with c/o cough, congestion, and fever. Pt reports consistant symptoms for approx x1wk. Pt reports to have been seen by her PCP on 06/13/19 (prescribed cough syrup). Pt reports upon rise on this day, she began to experience nuchal rigidity that increases upon movement. Pt reports to take tylenol and iburpofen [facility]. Sepsis Screen: No Definite Risk History of Present Illness Date Seen by Provider: Jun 15, 2019 Time Seen by Provider: 13:15 Initial Comments 68-year-old -Al[place]ian female presents for cough and congestion since present for approximately one week. She reports intermittent fevers, she's been using Tylenol and ibuprofen to control those. She has an albuterol inhaler, she's been using it occasionally less than 2 times a day for coughing rate she denies any dyspnea. She was prescribed a cough medication by her primary care provider on 06/13/19. Timing/Duration: week Severity/Quality: mild, productive cough Prior Episodes/Possible Cause: occasional episodes Modifying Factors: Improves With Albuterol Inhaler Associated Symptoms: cough, fever/chills, muscle aches (neck and right trapezi us muscle) Allergies and Home Medications Allergies Coded Allergies: cefuroxime (Verified Allergy, Unknown, PATIENT HAS RECEIVED ROCEPHIN W/O ISSUE, 03/14/16) Uncoded Allergies: PAPER TAPE (Adverse Reaction, Unknown, 09/08/14) Home Medications Acetaminophen 500 Mg Tablet, 1,000 MG PO Q6H PRN for PAIN-MILD, (Reported) Albuterol Sulfate 1 Puff Puff, 1-2 PUFF IH Q4H PRN for SHORTNESS OF BREATH, (Reported) Carisoprodol 350 Mg Tablet, 350 MG PO HS PRN for MUSCLE SPASMS, (Reported) Fluticasone Propionate 9.9 Ml [place].susp, 1 SPRAY NSEACH HS PRN for ALLERGIES, (Reported) Glimepiride 4 Mg Tablet, 4 MG PO DAILY, (Reported) Lisinopril/Hydrochlorothiazide 1 Each Tablet, 1 TAB PO BID, (Reported) LAST FILLED #180 ON 08-11-2018 Loratadine 10 Mg Tablet, 10 MG PO DAILY PRN for ALLERGIES, (Reported) Meloxicam 15 Mg Tablet, 15 MG PO UD, (Reported) TAKES 1 TABLET DAILY FOR 2 WEEKS, THEN IS OFF FOR 2 WEEKS- THEN REPEATS Metoprolol Tartrate 100 Mg Tablet, PO UD, (Reported) LAST FILLED #90 ON 08-11-2018 1/2 TABLET TWICE DAILY IF AM BLOOD PRESSURE IF <140, IF AM BLOOD PRESSURE IS <140 THEN TAKE WHOLE TABLET AT BEDTIME Montelukast Sodium 10 Mg Tablet, 10 MG PO HS PRN for ALLERGIES, (Reported) Polyvinyl Alcohol/Povidone/Pf 1 Each Droperette, 1 DROP OU TID PRN for dry eyes, (Reported) Patient Home Medication List Home Medication List Reviewed: Yes Review of Systems Review of Systems Constitutional: no symptoms reported, see HPI Respiratory: cough; No dyspnea on exertion; phlegm; No short of breath Cardiovascular: no symptoms reported, see HPI; No chest pain All Other Systems Reviewed Negative Unless Noted: Yes Past Xrxthuw-Ypwuyh-Pntltj Hx Past Med/Social Hx: Reviewed Nursing Past Med/Soc Hx Patient Social History Alcohol Use: Denies Use Recreational Drug Use: No Smoking Status: Never a Smoker 2nd Hand Smoke Exposure: No Recent Foreign Travel: No Contact w/Someone Who Travel: No Recent Infectious Disease Expo: No Recent Hopitalizations: No Physical Abuse: No Sexual Abuse: No Mistreated: No Fear: No Immunizations Up To Date Date of Pneumonia Vaccine: Jul 02, 2011 Date of Influenza Vaccine: Apr 29, 2014 Past Medical History Surgeries: Yes (jul 2014 left total knee, cataract) Cardiac, Eye Surgery, Gallbladder, Hysterectomy, Joint Replacement, Orthopedic Respiratory: Yes Pneumonia, Chronic Bronchitis Cardiac: Yes (heart cath with no intervention) Hypertension Neurological: No Reproductive Disorders: No 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 Sexually Transmitted Disease: No Bladder Infection Gastrointestinal: Yes Gastroesophageal Reflux Musculoskeletal: Yes (LEFT KNEE SCOPE,) Chronic Back Pain Endocrine: Yes Diabetes, Insulin dep Cataract Cancer: No Psychosocial: No Integumentary: No Blood Disorders: No Family Medical History Cancer 03 FATHER (PROSTATE) Cataract 03 MOTHER Chest pain 03 MOTHER Congestive heart failure 03 FATHER Family history: Arthritis 03 FATHER 03 MOTHER Family history: Asthma 03 MOTHER Family history: Hypertension 03 FATHER 03 MOTHER Heart disease 03 FATHER Myocardial infarction 03 MOTHER Prostate cancer 03 FATHER Stroke 03 MOTHER No Family History of: Abdominal aortic aneurysm Trino's disease Alcoholism Aphasia Cancer of colon Congenital heart disease Cystic fibrosis Dementia Dysphagia Family history: Allergy Family history: Alzheimer's disease Family history: Breast disease Family history: Cardiovascular disease Family history: Coronary thrombosis Family history: Diabetes mellitus Family history: Gastrointestinal disease Family history: Glaucoma Family history: Osteoporosis Family history: Thyroid disorder Headache Hearing loss Hereditary disease History of - anemia History of - disorder History of - respiratory disease History of drug abuse Human immunodeficiency virus (HIV) seropositivity Hypercholesterolemia Infertile Kidney disease Malignant neoplasm of lung Parkinson's disease Psychotic disorder Seizure disorder Tuberculosis Visual impairment Physical Exam Vital Signs - First Documented 06/15/19 13:10 Temp 36.8 Pulse 70 Resp 18 B/P (MAP) 152/77 (102) Pulse Ox 99 O2 Delivery Room Air Capillary Refill : Less Than 3 Seconds Height: 5'1.00" Weight: 199lbs. 1.6oz. 90.935084er; 36.00 BMI Method:Stated General Appearance: WD/WN, no apparent distress Eyes: Bilateral Eye Normal Inspection, Bilateral Eye PERRL, Bilateral Eye EOMI HEENT: PERRL/EOMI, normal ENT inspection, TMs normal, pharynx normal (with clear postnasal drainage) Neck: full range of motion, supple, normal inspection, tender lateral (right and right trapezius, no radiation to right shoulder or arm. ) Respiratory: chest non-tender, lungs clear, normal breath sounds Cardiovascular: normal peripheral pulses, regular rate, rhythm Gastrointestinal: normal bowel sounds, non tender, soft Neurologic/Psychiatric: no motor/sensory deficits, alert, normal mood/affect, oriented x 3 Skin: normal color, warm/dry Progress/Results/Core Measures Suspected Sepsis Recent Fever Within 48 Hours: Yes Infection Criteria Present: Suspected New Infection New/Unexplained Altered Menta: No Sepsis Screen: No Definite Risk SIRS Temperature: Pulse: 70 Respiratory Rate: 18 Blood Pressure 152 /77 Mean: 102 Results/Orders Micro Results Microbiology 06/15/19 Influenza Types A,B Antigen (DAVE) - Final, Complete My Orders Orders - LUIS EDUARDO WILKERSON Dexamethasone Injection (Decadron Inject (06/15/19 14:00) Influenza A And B Antigens (06/15/19 13:46) Medications Given in ED Current Medications Medications Dose Ordered Sig/Mihai Route Start Time Stop Time Status Last Admin Dose Admin Dexamethasone Sodium Phosphate 10 mg ONCE ONCE IM 06/15/19 14:00 06/15/19 14:01 DC 06/15/19 14:09 10 MG Vital Signs/I&O 06/15/19 06/15/19 13:10 14:11 Temp 36.8 Pulse 70 Resp 18 B/P (MAP) 152/77 (102) Pulse Ox 99 O2 Delivery Room Air Room Air Capillary Refill : Less Than 3 Seconds Blood Pressure Mean: 102 Departure Impression Primary Impression: Bronchitis Disposition: 01 HOME, SELF-CARE Condition: Improved Departure-Patient Inst. Decision time for Depature: 14:40 Referrals: KAREN BERMUDEZ DO (PCP/Family) Primary Care Physician Patient Instructions: Cough, Adult (DC), Acute Bronchitis, Adult (DC) Add. Discharge Instructions: Continue to use the cough medication as prescribed by your primary care provider. Take Mucinex one tablet twice daily with a full glass of water. Use your inhaler every 4 hours as needed for cough or shortness of air. Take antibiotics as prescribed. Follow-up with your primary care provider in one to 2 days if symptoms are not improving or worsen. Alternate between ibuprofen 600 mg and Tylenol 650 mg every 4 hours for pain or fever. Return to the emergency department for fever greater than 101 not relieved by Tylenol or ibuprofen, nausea and vomiting, or new urgent health care needs. All discharge instructions reviewed with patient and/or family. Voiced understanding. Scripts Prednisone (Prednisone) 20 Mg Tab 40 MG PO DAILY, #6 TAB 0 Refills Prov: LUIS EDUARDO WILKERSON 06/15/19 Azithromycin (Azithromycin) 250 Mg Tablet 250 MG PO UD, #6 TAB 0 Refills TAKE 2 TABLETS ON DAY ONE THEN TAKE 1 TABLET DAILY FOR FOUR MORE DAYS Prov: LUIS EDUARDO WILKERSON 06/15/19 Copy Copies To 1: KAREN BERMUDEZ AMY ARNP Jun 15, 2019 14:53
[2019-06-15] MEDS ORDERED: AZIT250T12 PO (14:55)
[2019-06-15] MEDS ORDERED: PRD20T PO (14:55)
[2019-06-15 14:58] VITALS: BP 144/86
== END 2019-06-15 14:58 | disposition home or self-care (01) ==
LOC: EDUNIT# 12:59 → ER 13:00
DX: J40 Bronchitis, not specified as acute or chronic (principal); I10 Essential (primary) hypertension; K21.9 Gastro-esophageal reflux disease without esophagitis; E11.9 Type 2 diabetes mellitus without complications; Z88.1 Allergy status to other antibiotic agents; Z88.8 Allergy status to other drugs, medicaments and biological substances; Z96.652 Presence of left artificial knee joint; Z79.51 Long term (current) use of inhaled steroids; Z90.710 Acquired absence of both cervix and uterus; Z82.49 Family history of ischemic heart disease and other diseases of the circulatory system; Z80.42 Family history of malignant neoplasm of prostate
CPT/HCPCS: 87804; 96372

== ENCOUNTER → 2019-06-27 | Outpatient (CLI) | payer MEDICARE ==
[~2019-06-27] MED LIST changes: +AZIT250T12 PO; +PRD20T PO; +RT-ALBUTEROL SULF 2.5 MG/3 ML PRE-MIX VIAL INH ONE
== END ==
LOC: RT 14:35
PROVIDERS: ATTEND Internal Medicine
DX: R06.2 Wheezing (principal)
CPT/HCPCS: 94060; 94726; 94729

== ENCOUNTER 2019-08-22 11:31 | Emergency (ER) | payer MEDICARE ==
[~2019-08-22] VITALS: Ht 154.9 cm; Wt 88.6 kg
[~2019-08-22 11:31] MED LIST changes: +GLIM4TAB5 PO; +LISI1TAB25 PO; -RT-ALBUTEROL SULF 2.5 MG/3 ML PRE-MIX VIAL INH ONE
--- NOTE | 2019-08-22 12:24 | ED Lower Extremity ---
General Chief Complaint: Trauma-Non Activation Stated Complaint: FALL Nursing Triage Note: AMB TO TRIAGE WITH WALKER REPORTS FELL AROUND [address] ON L KNEE. HAS HAD A KNEE REPLACEMENT. Nursing Sepsis Screen: No Definite Risk Source: patient Exam Limitations: no limitations History of Present Illness Date Seen by Provider: Aug 22, 2019 Time Seen by Provider: 12:22 Initial Comments To ER with pain in the left anterior knee after a fall. She is concerned because she has had a knee replacement on this side before. Onset: just prior to arrival Pain/Injury Location: left knee Method of Injury: fell Modifying Factors: Worse With Movement Allergies and Home Medications Allergies Coded Allergies: cefuroxime (Verified Allergy, Unknown, PATIENT HAS RECEIVED ROCEPHIN W/O ISSUE, 03/14/16) Uncoded Allergies: PAPER TAPE (Adverse Reaction, Unknown, 09/08/14) Home Medications Acetaminophen 500 Mg Tablet, 1,000 MG PO Q6H PRN for PAIN-MILD, (Reported) Albuterol Sulfate 1 Puff Puff, 1-2 PUFF IH Q4H PRN for SHORTNESS OF BREATH, (Reported) Azithromycin 250 Mg Tablet, 250 MG PO UD TAKE 2 TABLETS ON DAY ONE THEN TAKE 1 TABLET DAILY FOR FOUR MORE DAYS Prescribed by: LUIS EDUARDO WILKERSON on 06/15/19 1455 Carisoprodol 350 Mg Tablet, 350 MG PO HS PRN for MUSCLE SPASMS, (Reported) Fluticasone Propionate 9.9 Ml [place].susp, 1 SPRAY NSEACH HS PRN for ALLERGIES, (Reported) Glimepiride 4 Mg Tablet, 4 MG PO DAILY, (Reported) Lisinopril/Hydrochlorothiazide 1 Each Tablet, 1 TAB PO BID, (Reported) LAST FILLED #180 ON 08-11-2018 Loratadine 10 Mg Tablet, 10 MG PO DAILY PRN for ALLERGIES, (Reported) Meloxicam 15 Mg Tablet, 15 MG PO UD, (Reported) TAKES 1 TABLET DAILY FOR 2 WEEKS, THEN IS OFF FOR 2 WEEKS- THEN REPEATS Metoprolol Tartrate 100 Mg Tablet, PO UD, (Reported) LAST FILLED #90 ON 08-11-2018 1/2 TABLET TWICE DAILY IF AM BLOOD PRESSURE IF <140, IF AM BLOOD PRESSURE IS <140 THEN TAKE WHOLE TABLET AT BEDTIME Montelukast Sodium 10 Mg Tablet, 10 MG PO HS PRN for ALLERGIES, (Reported) Polyvinyl Alcohol/Povidone/Pf 1 Each Droperette, 1 DROP OU TID PRN for dry eyes, (Reported) Prednisone 20 Mg Tab, 40 MG PO DAILY Prescribed by: LUIS EDUARDO WILKERSON on 06/15/19 1830 Patient Home Medication List Home Medication List Reviewed: Yes Review of Systems Constitutional: see HPI EENTM: see HPI Respiratory: no symptoms reported Cardiovascular: no symptoms reported Genitourinary: no symptoms reported Musculoskeletal: see HPI Skin: no symptoms reported Psychiatric/Neurological: No Symptoms Reported Past Jqlmnqj-Cnpazb-Apbdyo Hx Patient Social History Alcohol Use: Denies Use Recreational Drug Use: No Smoking Status: Never a Smoker 2nd Hand Smoke Exposure: No Recent Foreign Travel: No Contact w/Someone Who Travel: No Recent Infectious Disease Expo: No Recent Hopitalizations: No Immunizations Up To Date Date of Pneumonia Vaccine: Jul 02, 2011 Date of Influenza Vaccine: Apr 29, 2014 Past Medical History Surgeries: Yes (jul 2014 left total knee, cataract) Cardiac, Eye Surgery, Gallbladder, Hysterectomy, Joint Replacement, Orthopedic Respiratory: Yes Pneumonia, Chronic Bronchitis Cardiac: Yes (heart cath with no intervention) Hypertension Neurological: No 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 Sexually Transmitted Disease: No Bladder Infection Gastrointestinal: Yes Gastroesophageal Reflux Musculoskeletal: Yes (LEFT KNEE SCOPE,) Chronic Back Pain Endocrine: Yes Diabetes, Insulin dep Cataract Cancer: No Psychosocial: No Integumentary: No Blood Disorders: No Family Medical History Cancer 03 FATHER (PROSTATE) Cataract 03 MOTHER Chest pain 03 MOTHER Congestive heart failure 03 FATHER Family history: Arthritis 03 FATHER 03 MOTHER Family history: Asthma 03 MOTHER Family history: Hypertension 03 FATHER 03 MOTHER Heart disease 03 FATHER Myocardial infarction 03 MOTHER Prostate cancer 03 FATHER Stroke 03 MOTHER No Family History of: Abdominal aortic aneurysm [place]'s disease Alcoholism Aphasia Cancer of colon Congenital heart disease Cystic fibrosis Dementia Dysphagia Family history: Allergy Family history: Alzheimer's disease Family history: Breast disease Family history: Cardiovascular disease Family history: Coronary thrombosis Family history: Diabetes mellitus Family history: Gastrointestinal disease Family history: Glaucoma Family history: Osteoporosis Family history: Thyroid disorder Headache Hearing loss Hereditary disease History of - anemia History of - disorder History of - respiratory disease History of drug abuse Human immunodeficiency virus (HIV) seropositivity Hypercholesterolemia Infertile Kidney disease Malignant neoplasm of lung Parkinson's disease Psychotic disorder Seizure disorder Tuberculosis Visual impairment Physical Exam Vital Signs Vital Signs - First Documented 08/22/19 12:09 Temp 36.8 Pulse 55 Resp 18 B/P (MAP) 128/71 (90) Pulse Ox 96 Capillary Refill : Less Than 3 Seconds Height, Weight, BMI Height: 5'1.00" Weight: 199lbs. 1.6oz. 90.453884uq; 36.00 BMI Method:Stated General Appearance: WD/WN, no apparent distress HEENT: PERRL/EOMI, normal ENT inspection Respiratory: no respiratory distress, no accessory muscle use Hips: bilateral hip non-tender, bilateral hip normal inspection, bilateral hip normal range of motion Legs: bilateral leg non-tender, bilateral leg normal inspection, bilateral leg normal range of motion Knees: right knee other (no ecchymosis or effusion minimal tenderness to palpation) Ankles: bilateral ankle non-tender, bilateral ankle normal inspection, bilater al ankle normal range of motion Feet: bilateral foot non-tender, bilateral foot normal inspection, bilateral foot normal range of motion Neurologic/Psychiatric: alert, normal mood/affect, oriented x 3 Skin: normal color, warm/dry Progress/Results/Core Measures Results/Orders My Orders Orders - DAYANARA WHITLOCK APRN Knee, Left, 3 Views (08/22/19 12:19) Vital Signs/I&O 08/22/19 12:09 Temp 36.8 Pulse 55 Resp 18 B/P (MAP) 128/71 (90) Pulse Ox 96 Blood Pressure Mean: 90 Departure Impression Primary Impression: Knee contusion Qualified Codes: S80.02XA - Contusion of left knee, initial encounter Disposition: HOME, SELF-CARE Condition: Stable Departure-Patient Inst. Decision time for Depature: 12:41 Referrals: KAREN BERMUDEZ DO (PCP/Family) Primary Care Physician Patient Instructions: Contusion (DC) DAYANARA WHITLOCK APRN Aug 22, 2019 12:23
--- NOTE | 2019-08-22 13:05 | Diagnostic Imaging Report ---
HISTORY: Left lateral knee pain after fall. COMPARISON: 04/26/2007 TECHNIQUE: 3 views of the left knee FINDINGS: There is a left total knee arthroplasty. Alignment appears normal. No hardware complication is seen. There is a small left knee joint effusion. There appear to be small joint bodies anteriorly. No acute fracture is seen. IMPRESSION: 1. Left total knee arthroplasty without hardware complication or acute osseous abnormality seen. 2. Small left knee joint effusion. Dictated by: Dictated on workstation # [id number]
[2019-08-22 13:11] VITALS: BP 128/71
== END 2019-08-22 13:13 | disposition home or self-care (01) ==
LOC: EDUNIT# 11:31 → ER 11:33
DX: S80.02XA Contusion of left knee, initial encounter (principal); I10 Essential (primary) hypertension; E11.9 Type 2 diabetes mellitus without complications; Z96.652 Presence of left artificial knee joint; Z88.1 Allergy status to other antibiotic agents; Z88.8 Allergy status to other drugs, medicaments and biological substances; Z79.51 Long term (current) use of inhaled steroids; Z79.52 Long term (current) use of systemic steroids; Z80.42 Family history of malignant neoplasm of prostate; Z82.49 Family history of ischemic heart disease and other diseases of the circulatory system; W19.XXXA Unspecified fall, initial encounter
CPT/HCPCS: 73562

== ENCOUNTER → 2020-04-10 | Outpatient (CLI) | payer MEDICARE ==
[~2020-04-10] MED LIST changes: +CATHETER FLUSH 10 ML SYR IV PRN; +HOLD METFORMIN - RECEIVED CONTRAST 20 ML VIAL IV SCH; +IOHEXOL 350 MG/ML 100 ML (OMNIPAQUE 350) VIAL IV ONE; -LISI1TAB25 PO; +LISI1TAB46 PO; +NS 100 ML (IVPB) BAG IV ONE
--- NOTE | 2020-04-10 14:34 | Diagnostic Imaging Report ---
PROCEDURE: CT sinuses without contrast TECHNIQUE: Multiple contiguous axial images were obtained through the sinuses without the use of intravenous contrast. Coronal and sagittal reformations were then performed. Auto Exposure Controls were utilized during the CT exam to meet ALARA standards for radiation dose reduction. INDICATION: Rhinorrhea. No prior studies are available for comparison. The frontal sinus is clear. The ethmoid air cells and sphenoid sinus are clear. Bilateral maxillary sinuses are clear. No mucosal thickening or air-fluid levels are identified. The ostiomeatal complexes are patent bilaterally. Nasal septum is midline. Mastoid air cells are well aerated. IMPRESSION: No evidence of sinusitis. Dictated by: Dictated on workstation # [id number]
--- NOTE | 2020-04-10 16:02 | Diagnostic Imaging Report ---
PROCEDURE: CT chest with contrast only. TECHNIQUE: Multiple contiguous axial images were obtained through the chest after administration of intravenous contrast. Auto Exposure Controls were utilized during the CT exam to meet ALARA standards for radiation dose reduction. DATE: April 10, 2020. COMPARISON: Chest radiograph December 16, 2018. INDICATION: 69-year-old female, cough and rhinorrhea. FINDINGS: There is a 3 mm noncalcified left lower lobe pulmonary nodule on axial image 82. There is no lung mass. There is no additional focal airspace consolidation. There is no pneumothorax. There is no pleural effusion. The central airways are patent. The main pulmonary artery is dilated to 3.1 cm in diameter. There is no identified central pulmonary embolus. The heart is not enlarged. There is no pericardial effusion. There is no identified abnormally enlarged mediastinal, hilar, or axillary lymph node meeting CT size criteria for adenopathy. There is incidental note of direct origin of the left vertebral artery off the aortic arch. The patient is status post cholecystectomy. There is an incompletely imaged low-attenuation right renal lesion measuring 7 mm in size which is too small to characterize. There is a very small hiatal hernia. There is no identified acute bony abnormality. There are degenerative changes of the spine. IMPRESSION: 1. No identified acute cardiopulmonary abnormality. 2. There is a 3 mm noncalcified left lower lobe pulmonary nodule. 3. Very small hiatal hernia. Dictated by: Dictated on workstation # [id number]
== END ==
LOC: RAD 13:24
PROVIDERS: ATTEND Internal Medicine
DX: J34.89 Other specified disorders of nose and nasal sinuses (principal); K44.9 Diaphragmatic hernia without obstruction or gangrene; R91.8 Other nonspecific abnormal finding of lung field
CPT/HCPCS: 70486; 71260

== ENCOUNTER → 2020-11-29 | Outpatient (CLI) | payer MEDICARE ==
[~2020-11-29] MED LIST changes: -CATHETER FLUSH 10 ML SYR IV PRN; -HOLD METFORMIN - RECEIVED CONTRAST 20 ML VIAL IV SCH; -IOHEXOL 350 MG/ML 100 ML (OMNIPAQUE 350) VIAL IV ONE; -NS 100 ML (IVPB) BAG IV ONE
== END ==
LOC: CARD 09:16
PROVIDERS: ATTEND Internal Medicine Cardiovascular Disease
DX: R00.2 Palpitations (principal)
CPT/HCPCS: 93225; 93226; 93306

== ENCOUNTER → 2020-12-04 | Outpatient (CLI) | payer MEDICARE ==
[~2020-12-04] MED LIST changes: +CATHETER FLUSH 10 ML SYR IV PRN; +REGADENOSON 0.4 MG/5 ML SYR (LEXISCAN) IV ONE
[2020-12-04 09:20] VITALS: BP 127/77
--- NOTE | 2020-12-04 13:27 | STRESS TEST ---
DATE OF SERVICE: 12/04/2020 RESTING AND POST REGADENOSON TECHNETIUM-99M TETROFOSMIN SPECT CT IMAGING ORDERING PHYSICIAN: Dr. Ca. PRIMARY PHYSICIAN: Dr. Boo. CLINICAL DIAGNOSIS: Shortness of breath. Baseline images were carried out after injection of 10.94 mCi of technetium-99m Tetrofosmin. This was followed by 0.4 mg Regadenoson and 30.2 mCi of technetium-99m Tetrofosmin for stress imaging. The electrocardiogram showed sinus rhythm at baseline. It did not change significantly with the Regadenoson infusion. Rare isolated premature ventricular contraction was seen. The patient tolerated the procedure well. Review of images at rest and following stress does not indicate any significant perfusion defects consistent with myocardial ischemia or infarction. Gated images show a normal global left ventricular systolic function with normal regional wall motion. Left ventricular ejection fraction is calculated to be 73%. Left ventricular end diastolic volume is 21 mL. TID is absent (1.12). CONCLUSIONS: 1. No evidence of any significant myocardial ischemia or infarction on this study. 2. Normal regional wall motion. 3. Normal global left ventricular systolic function with a calculated ejection fraction of 73%. Job ID: [id number] DocumentID: [id number] Dictated Date: 12/04/2020 13:17:57 Spare Parts Clerk Date: 12/04/2020 13:26:16 Dictated By: MALA CA MD, MA, FACP, FACC,
== END ==
LOC: CARD 08:00
PROVIDERS: ATTEND Internal Medicine Cardiovascular Disease
DX: R06.02 Shortness of breath (principal)
CPT/HCPCS: 78452; 93017; A9502

== ENCOUNTER 2020-12-22 15:57 | Observation (INO) | payer MEDICARE ==
[~2020-12-22] VITALS: Ht 154.9 cm; Wt 84.2 kg
[~2020-12-22 15:57] MED LIST changes: -CATHETER FLUSH 10 ML SYR IV PRN; -REGADENOSON 0.4 MG/5 ML SYR (LEXISCAN) IV ONE
[2020-12-22] MEDS ORDERED: ONDANSETRON 4 MG/2 ML (SDV) Z0FRAN IVP ONE (16:15)
[2020-12-22 16:30] LABS: BASOPHILS # (AUTO) 0.1 10^3/uL (0.0-0.1); BASOPHILS % (AUTO) 1 % (0-10); EOSINOPHILS # (AUTO) 0.1 10^3/uL (0.0-0.3); EOSINOPHILS % (AUTO) 2 % (0-10); HEMATOCRIT 39 % (35-52); HEMOGLOBIN 12.6 g/dL (11.5-16.0); LYMPHOCYTES # (AUTO) 2.4 10^3/uL (1.0-4.0); LYMPHOCYTES % (AUTO) 33 % (12-44); MEAN CORPUSCULAR HEMOGLOBIN 27 pg (25-34); MEAN CORPUSCULAR HGB CONC 32 g/dL (32-36); MEAN CORPUSCULAR VOLUME 83 fL (80-99); MEAN PLATELET VOLUME 9.7 fL (9.0-12.2); MONOCYTES # (AUTO) 0.5 10^3/uL (0.0-1.0); MONOCYTES % (AUTO) 7 % (0-12); NEUTROPHILS # (AUTO) 4.1 10^3/uL (1.8-7.8); NEUTROPHILS % (AUTO) 57 % (42-75); PLATELET COUNT 223 10^3/uL (130-400); WHITE BLOOD COUNT 7.1 10^3/uL (4.3-11.0)
[2020-12-22 16:41] LABS: POTASSIUM 3.3 MMOL/L (3.6-5.0)
[2020-12-22 16:42] LABS: CALCIUM 9.9 MG/DL (8.5-10.1)
[2020-12-22 16:43] LABS: TOTAL PROTEIN 7.6 GM/DL (6.4-8.2)
[2020-12-22 16:45] LABS: BILIRUBIN,TOTAL 0.5 MG/DL (0.1-1.0)
[2020-12-22 16:47] LABS: CREATININE SERUM 1.14 MG/DL (0.60-1.30)
[2020-12-22 16:51] LABS: MAGNESIUM 1.6 MG/DL (1.6-2.4)
[2020-12-22 17:00] LABS: INR 0.9 (0.8-1.4); PROTHROMBIN TIME PATIENT 12.5 SEC (12.2-14.7)
--- NOTE | 2020-12-22 17:38 | ED Cardiac General ---
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 ALSO C/O HEADACHE. TEARFUL HAS A RESIDENT THAT IS DYING . ALSO REPORTS 2 WEEKS AGO. HAS A STRESS TEST. BECAUSE SHE HAS BEEN HAVING PALPATIONS. Source: patient, old records Exam Limitations: no limitations (CIARA SILVA MD) History of Present Illness Date Seen by Provider: Dec 22, 2020 Time Seen by Provider: 15:58 Initial Comments Mrs. 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 The chest pain seems pleuritic in nature. She also has some chest pain associated with intermittent palpitations. She has been recently under work-up by Dr. Gutierrez for these palpitations. She has had a Holter monitor, echocardiogram, and stress test. No significant abnormalities were noted. Blood sugar for EMS is 139. She has been under some work and emotional distress recently assisting a patient who is near . 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 She is noted to have a little bit of cough. She also complains of headache at present. She is alert and oriented. She also reports vomiting this evening. (CIARA SILVA MD) Allergies and Home Medications Allergies Coded Allergies: cefuroxime (Verified Allergy, Unknown, PATIENT HAS RECEIVED ROCEPHIN W/O ISSUE, 03/14/16) Uncoded Allergies: PAPER TAPE (Adverse Reaction, Unknown, 09/08/14) Home Medications Acetaminophen 500 Mg Tablet, 1,000 MG PO Q6H PRN for PAIN-MILD, (Reported) Last Action: Reviewed Albuterol Sulfate 1 Puff Puff, 1-2 PUFF IH Q4H PRN for SHORTNESS OF BREATH, (Rep orted) Last Action: Reviewed Aspirin 81 Mg Tab.chew, 81 MG PO DAILY Prescribed by: KENRICK WILDE on 12/23/20 1407 Carisoprodol 350 Mg Tablet, 350 MG PO HS PRN for MUSCLE SPASMS, (Reported) Last Action: Reviewed Fluticasone Propionate 9.9 Ml [place].susp, 1 SPRAY NSEACH HS PRN for ALLERGIES, (Reported) Last Action: Reviewed Glimepiride 4 Mg Tablet, 4 MG PO DAILY, (Reported) Last Action: Reviewed Lisinopril/Hydrochlorothiazide 1 Each Tablet, 1 TAB PO BID, (Reported) LAST FILLED #180 ON 08-11-2018 Last Action: Reviewed Loratadine 10 Mg Tablet, 10 MG PO DAILY PRN for ALLERGIES, (Reported) Last Action: Reviewed Meloxicam 15 Mg Tablet, 15 MG PO UD, (Reported) TAKES 1 TABLET DAILY FOR 2 WEEKS, THEN IS OFF FOR 2 WEEKS- THEN REPEATS Last Action: Reviewed Metoprolol Tartrate 100 Mg Tablet, 100 MG PO HS, (Reported) Last Action: Reviewed Montelukast Sodium 10 Mg Tablet, 10 MG PO HS, (Reported) Last Action: Reviewed Polyvinyl Alcohol/Povidone/Pf 1 Each Droperette, 1 DROP OU TID PRN for dry eyes, (Reported) Last Action: Reviewed Patient Home Medication List Home Medication List Reviewed: Yes (CIARA SILVA MD) Home Medication List Reviewed: Yes (NAVDEEP MANJARREZ) Review of Systems Review of Systems Constitutional: no symptoms reported EENTM: No Symptoms Reported Respiratory: See HPI Cardiovascular: See HPI Gastrointestinal: See HPI Genitourinary: No Symptoms Reported Musculoskeletal: see HPI Skin: no symptoms reported Psychiatric/Neurological: See HPI Endocrine: See HPI Hematologic/Lymphatic: No Symptoms Reported (CIARA SILVA MD) Past Slltabm-Kuoqwy-Nwdvvo Hx Past Med/Social Hx: Reviewed Nursing Past Med/Soc Hx (CIARA SILVA MD) Patient Social History Alcohol Use: Denies Use Smoking Status: Never a Smoker 2nd Hand Smoke Exposure: No Recent Infectious Disease Expo: No Recent Hopitalizations: No (CIARA SILVA MD) Immunizations Up To Date Date of Pneumonia Vaccine: Jul 02, 2011 Date of Influenza Vaccine: Apr 29, 2014 (CIARA SILVA MD) Past Medical History Surgeries: Yes (jul 2014 left total knee, cataract) Cardiac, Eye Surgery, Gallbladder, Hysterectomy, Joint Replacement, Orthopedic Respiratory: Yes Pneumonia, Chronic Bronchitis Cardiac: Yes (heart cath with no intervention) Hypertension Neurological: No 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 Sexually Transmitted Disease: No Bladder Infection Gastrointestinal: Yes Gastroesophageal Reflux Musculoskeletal: Yes (LEFT KNEE SCOPE,) Chronic Back Pain Endocrine: Yes Diabetes, Insulin dep Cataract Cancer: No Psychosocial: No Integumentary: No Blood Disorders: No (CIARA SILVA MD) Family Medical History Reviewed and Corrections made (CIARA SILVA MD) Cancer 03 FATHER (PROSTATE) Cataract 03 MOTHER Chest pain 03 MOTHER Congestive heart failure 03 FATHER Family history: Arthritis 03 FATHER 03 MOTHER Family history: Asthma 03 MOTHER Family history: Hypertension 03 FATHER 03 MOTHER Heart disease 03 FATHER Myocardial infarction 03 MOTHER Prostate cancer 03 FATHER Stroke 03 MOTHER No Family History of: Abdominal aortic aneurysm Trino's disease Alcoholism Aphasia Cancer of colon Congenital heart disease Cystic fibrosis Dementia Dysphagia Family history: Allergy Family history: Alzheimer's disease Family history: Breast disease Family history: Cardiovascular disease Family history: Coronary thrombosis Family history: Diabetes mellitus Family history: Gastrointestinal disease Family history: Glaucoma Family history: Osteoporosis Family history: Thyroid disorder Headache Hearing loss Hereditary disease History of - anemia History of - disorder History of - respiratory disease History of drug abuse Human immunodeficiency virus (HIV) seropositivity Hypercholesterolemia Infertile Kidney disease Malignant neoplasm of lung Parkinson's disease Psychotic disorder Seizure disorder Tuberculosis Visual impairment Physical Exam Vital Signs Vital Signs - First Documented 12/22/20 15:59 Temp 36.1 Pulse 106 Resp 18 B/P (MAP) 169/51 (90) Pulse Ox 99 O2 Delivery Room Air (NAVDEEP MANJARREZ) Vital Signs Capillary Refill : Less Than 3 Seconds (CIARA SILVA MD) Height, Weight, BMI Height: 5'1.00" Weight: 199lbs. 1.6oz. 90.064621hh; 35.00 BMI Method:Stated General Appearance: No Apparent Distress, WD/WN HEENT: PERRL/EOMI, Normal ENT Inspection Neck: Normal Inspection Respiratory: Lungs Clear, Normal Breath Sounds, No Accessory Muscle Use, No Respiratory Distress, Other (Left upper anterior chest tender to palpation) Cardiovascular: Regular Rate, Rhythm, No Edema, No Murmur Gastrointestinal: Normal Bowel Sounds, Non Tender, Soft Extremity: Normal Inspection, Non Tender, No Calf Tenderness, No Pedal Edema Neurologic/Psychiatric: Alert, Oriented x3, No Motor/Sensory Deficits, medical technologist microbiology II- XII Norm as Tested, Other (Mildly anxious) Skin: Normal Color, Warm/Dry (CIARA SILVA MD) Progress/Results/Core Measures Results/Orders Lab Results Laboratory Tests Test 12/22/20 16:11 12/22/20 16:16 12/22/20 18:20 Range/Units White Blood Count 7.1 4.3-11.0 10^3/uL Red Blood Count 4.76 3.80-5.11 10^6/uL Hemoglobin 12.6 11.5-16.0 g/dL Hematocrit 39 35-52 % Mean Corpuscular Volume 83 80-99 fL Mean Corpuscular Hemoglobin 27 25-34 pg Mean Corpuscular Hemoglobin Concent 32 32-36 g/dL Red Cell Distribution Width 12.5 10.0-14.5 % Platelet Count 223 130-400 10^3/uL Mean Platelet Volume 9.7 9.0-12.2 fL Immature Granulocyte % (Auto) 0 % Neutrophils (%) (Auto) 57 42-75 % Lymphocytes (%) (Auto) 33 12-44 % Monocytes (%) (Auto) 7 0-12 % Eosinophils (%) (Auto) 2 0-10 % Basophils (%) (Auto) 1 0-10 % Neutrophils # (Auto) 4.1 1.8-7.8 10^3/uL Lymphocytes # (Auto) 2.4 1.0-4.0 10^3/uL Monocytes # (Auto) 0.5 0.0-1.0 10^3/uL Eosinophils # (Auto) 0.1 0.0-0.3 10^3/uL Basophils # (Auto) 0.1 0.0-0.1 10^3/uL Immature Granulocyte # (Auto) 0.0 0.0-0.1 10^3/uL Prothrombin Time 12.5 12.2-14.7 SEC INR Comment 0.9 0.8-1.4 Activated Partial Thromboplast Time 25 24-35 SEC D-Dimer 0.30 0.00-0.49 UG/ML Sodium Level 143 135-145 MMOL/L Potassium Level 3.3 L 3.6-5.0 MMOL/L Chloride Level 104 98-107 MMOL/L Carbon Dioxide Level 23 21-32 MMOL/L Anion Gap 16 H 5-14 MMOL/L Blood Urea Nitrogen 19 H 7-18 MG/DL Creatinine 1.14 0.60-1.30 MG/DL Estimat Glomerular Filtration Rate 57 BUN/Creatinine Ratio 17 Glucose Level 152 H 70-105 MG/DL Calcium Level 9.9 8.5-10.1 MG/DL Corrected Calcium 9.9 8.5-10.1 MG/DL Magnesium Level 1.6 1.6-2.4 MG/DL Total Bilirubin 0.5 0.1-1.0 MG/DL Aspartate Amino Transf (AST/SGOT) 16 5-34 U/L Alanine Aminotransferase (ALT/SGPT) 11 0-55 U/L Alkaline Phosphatase 98 40-136 U/L Myoglobin 54.5 10.0-92.0 NG/ML Troponin I < 0.028 0.045 H <0.028 NG/ML C-Reactive Protein High Sensitivity 0.88 H 0.00-0.50 MG/DL B-Type Natriuretic Peptide 32.9 <100.0 PG/ML Total Protein 7.6 6.4-8.2 GM/DL Albumin 4.0 3.2-4.5 GM/DL Influenza Type A (RT-PCR) Not Detected Not Detecte Influenza Type B (RT-PCR) Not Detected Not Detecte SARS-CoV-2 RNA (RT-PCR) Not Detected Not Detecte (NAVDEEP MANJARREZ) My Orders Orders - NAVDEEP MANJARREZ Aspirin Chewable Tablet (Baby Aspirin Ch (12/22/20 19:45) Enoxaparin Injection (Lovenox Injection) (12/22/20 19:45) Metoprolol Succinate (Xl) Tab (Toprol Xl (12/22/20 20:00) (NAVDEEP MANJARREZ) Medications Given in ED Current Medications Medications Dose Ordered Sig/Mihai Route Start Time Stop Time Status Last Admin Dose Admin Aspirin 324 mg ONCE ONCE PO 12/22/20 19:45 12/22/20 19:46 DC 12/22/20 19:56 324 MG Enoxaparin Sodium 80 mg ONCE ONCE SC 12/22/20 19:45 12/22/20 19:46 DC 12/22/20 19:57 80 MG Ondansetron HCl 8 mg ONCE ONCE IVP 12/22/20 16:15 12/22/20 16:17 DC 12/22/20 16:34 8 MG (NAVDEEP MANJARREZ) Vital Signs/I&O 12/22/20 15:59 Temp 36.1 Pulse 106 Resp 18 B/P (MAP) 169/51 (90) Pulse Ox 99 O2 Delivery Room Air (NAVDEEP MANJARREZ) Blood Pressure Mean: 90 Progress Progress Note #1: Time: 18:15 Progress Note Assumed care of the patient at shift change. She has a delta troponin which is greater than 4 hours after the start of symptoms drawn and we are waiting on the results of that as well as an official read from radiology on the chest x-ray. Patient is comfortable, jovial and pain-free. Consultation was made with Dr. Ca by Dr. Moon and if she has a negative troponin she can follow-up outpatient. Patient's symptoms seem to be related to her recent stressors and are more pleuritic in nature on history and exam. Progress Note #2: Time: 19:34 Progress Note Patient still resting comfortably with no discomfort nausea sweats fever chills cough chest pain. She has had an increase in her troponin. She had a stress test from [address] Ca but does not know the results of the test. (NAVDEEP MANJARREZ) Initial ECG Impression Date: Dec 22, 2020 Initial ECG Impression Time: 16:30 Initial ECG Rate: 99 Initial ECG Rhythm: S.Tach Comment Sinus tachycardia with no ST elevation or depression. PVCs noted. LVH. No abnormal intervals. No significant change from prior. (CIARA SILVA MD) Diagnostic Imaging Diagonstic Imaging: Xray Plain Films/CT/US/NM/MRI: chest Comments No acute cardiopulmonary process on 1 view chest x-ray NAME: XOCHILT FOOTE [facility] REC#: [id number] PT STATUS: REG ER : 1950 PHYSICIAN: CIARA SILVA MD ADMIT DATE: 12/22/20/ER Draft Date of Exam:12/22/20 CHEST 1 VIEW, AP/PA ONLY INDICATION: Chest pain. EXAMINATION: Chest, 12/22/2020. COMPARISON: 12/16/2018. FINDINGS: Right hemidiaphragm is elevated but stable. Lungs clear. No infiltrate or effusion. Heart and pulmonary vasculature are normal. IMPRESSION: No acute process. Dictated on workstation # [id number] Dict: 12/22/201809 Trans: 12/22/201814 [facility] [id number] Interpreted by: REX BOLAÑOS MD Electronically signed by: Reviewed: Reviewed by Me (NAVDEEP MANJARREZ) Departure Communication (Admissions) Time/Spoke to Admitting Phy: 20:00 Discussed the case with Dr. Ambriz and he agrees to observe the patient with trended troponins and consultation to cardiology. Time/Spoke to Consulting Phy: 19:53 Discussed the case with Dr. Ca and he would like the patient on metoprolol 100 mg, Plavix, aspirin and Lovenox 40 subcu every 12. (NAVDEEP MANJARREZ) Impression Primary Impression: Acute coronary syndrome with high troponin Disposition: ADMITTED INPATIENT Condition: Stable Admissions Decision to Admit Reason: Admit from ER (General) Decision to Admit/Date: Dec 22, 2020 Time/Decision to Admit Time: 19:30 (NAVDEEP MANJARREZ) Departure-Patient Inst. Referrals: KAREN BERMUDEZ DO (PCP/Family) Primary Care Physician Scripts Aspirin (Aspirin) 81 Mg Tab.chew 81 MG PO DAILY for 30 Days, TAB Prov: MALA CA MD FACP FAC CCDS 12/23/20 CIARA SILVA MD Dec 22, 2020 17:38 NAVDEEP MANJARREZ Dec 22, 2020 18:19
--- NOTE | 2020-12-22 18:15 | Diagnostic Imaging Report ---
INDICATION: Chest pain. EXAMINATION: Chest, 12/22/2020. COMPARISON: 12/16/2018. FINDINGS: Right hemidiaphragm is elevated but stable. Lungs clear. No infiltrate or effusion. Heart and pulmonary vasculature are normal. IMPRESSION: No acute process. Dictated by: Dictated on workstation # [id number]
[2020-12-22] MEDS ORDERED: ENOXAPARIN 80 MG/0.8 ML (LOVENOX) SYR SC ONE (19:45)
[2020-12-22] MEDS ORDERED: ASPIRIN 81 MG CHEW (CHILDREN'S ASA) PO ONE (19:45)
[2020-12-22] MEDS ORDERED: meTOprolol SUCCINATE 100 MG (TOPROL XL) TAB PO ONE (20:00)
[2020-12-22 20:36] VITALS: BP 189/88
[2020-12-22] MEDS ORDERED: ACETAMINOPHEN 325 MG TABLET PO PRN (21:00)
[2020-12-22] MEDS ORDERED: CATHETER FLUSH 10 ML SYR IV PRN (21:00)
[2020-12-22] MEDS ORDERED: ONDANSETRON 4 MG/2 ML (SDV) Z0FRAN IVP PRN (21:15)
[2020-12-22] MEDS ORDERED: NITROGLYCERIN 0.4 MG SL TABS BTL 25'S SL PRN (21:15)
[2020-12-22] MEDS ORDERED: morphine INJ 4 MG/ML 1 ML (VIAL/SYRINGE) IV PRN (21:15)
[2020-12-22 22:00] VITALS: BP 141/76
[2020-12-22] MEDS: lisINopril 20 MG (PRINIVIL) TABLET PO SCH (22:03)
[2020-12-22] MEDS: CLOPIDOGREL 75 MG (PLAVIX) TABLET PO SCH (22:03)
[2020-12-22] MEDS: CATHETER FLUSH 10 ML SYR IV SCH (22:04)
[2020-12-22 23:00] VITALS: BP 127/59
[2020-12-23] VITALS: BP 121/56
[2020-12-23 01:36] LABS: BASOPHILS # (AUTO) 0.1 10^3/uL (0.0-0.1); BASOPHILS % (AUTO) 1 % (0-10); EOSINOPHILS # (AUTO) 0.2 10^3/uL (0.0-0.3); EOSINOPHILS % (AUTO) 2 % (0-10); HEMATOCRIT 36 % (35-52); HEMOGLOBIN 11.3 g/dL (11.5-16.0); LYMPHOCYTES # (AUTO) 2.9 10^3/uL (1.0-4.0); LYMPHOCYTES % (AUTO) 38 % (12-44); MEAN CORPUSCULAR HEMOGLOBIN 27 pg (25-34); MEAN CORPUSCULAR HGB CONC 31 g/dL (32-36); MEAN CORPUSCULAR VOLUME 85 fL (80-99); MEAN PLATELET VOLUME 9.8 fL (9.0-12.2); MONOCYTES # (AUTO) 0.5 10^3/uL (0.0-1.0); MONOCYTES % (AUTO) 7 % (0-12); NEUTROPHILS % (AUTO) 52 % (42-75); PLATELET COUNT 185 10^3/uL (130-400); WHITE BLOOD COUNT 7.7 10^3/uL (4.3-11.0)
[2020-12-23 01:42] LABS: POTASSIUM 3.4 MMOL/L (3.6-5.0)
[2020-12-23 01:47] LABS: CREATININE SERUM 1.23 MG/DL (0.60-1.30)
[2020-12-23 04:20] VITALS: BP 121/49
[2020-12-23] MEDS ORDERED: POTASSIUM CL 10MEQ/50ML IVPB 50 ML IV SCH (06:00)
[2020-12-23] MEDS ORDERED: MAGNESIUM 1 GM/100 ML IVPB 100 ML IV SCH (06:00)
[2020-12-23] MEDS ORDERED: KCL 20 MEQ TAB (K-DUR) PO SCH (06:00)
[2020-12-23] MEDS: CATHETER FLUSH 10 ML SYR IV SCH ×2 (06:16→12:51)
[2020-12-23] MEDS: inSUlin ASPART (NovoLOG) 1 UNIT/0.01 ML (CHARGE PER UNIT) SC SCH ×2 (06:46→10:53)
[2020-12-23 07:27] VITALS: BP 109/75
[2020-12-23] MEDS: CLOPIDOGREL 75 MG (PLAVIX) TABLET PO SCH (07:55)
[2020-12-23] MEDS: lisINopril 20 MG (PRINIVIL) TABLET PO SCH (07:56)
[2020-12-23] MEDS ORDERED: KCL 20 MEQ TAB (K-DUR) PO ONE (08:00)
[2020-12-23] MEDS ORDERED: ASPIRIN E.C. 81 MG (ECOTRIN) TAB PO SCH (09:00)
[2020-12-23] MEDS ORDERED: meTOprolol SUCCINATE 100 MG (TOPROL XL) TAB PO SCH (09:00)
[2020-12-23] MEDS ORDERED: ENOXAPARIN 40 MG/0.4 ML (LOVENOX) SYR SC SCH (09:00)
[2020-12-23 11:21] VITALS: BP 126/80
[2020-12-23] MEDS ORDERED: ASPI-999 PO (14:07)
--- NOTE | 2020-12-23 16:39 | Consultation-Cardiology ---
HPI-Cardiology Cardiology Consultation: Date of Consultation 12/23/20 Time Seen by a Provider: 14:30 Date of Admission Attending Physician Renetta Ambriz MD Admitting Physician Sharon Boo DO Consulting Physician MALA VILLANUEVA MD, MA, FACP, FACC, FSCAI, CCDS HPI: Chief Complaint: Palpitations and chest discomfort HPI 70 yo woman admitted to the [facility] on 12/22/20 with intermittent palpitations and mild, L-sided chest discomfort that was worse with deep breathing and that did not radiate and that resolved in a few hours. She was hospitalized because one troponin reading was minimally outside the normal range. She currently feels well and wishes to go home. She denies any palp or syncope. She has mild, chronic, exertional shortness of breath. She does not report any focal weakness. She denies fever or chills. Review of Systems-Cardiology Review of Systems Constitutional: No malaise, No weight loss, No weight gain Eyes: No vision change Ears/Nose/Throat: No ear discharge, No nasal drainage, No recent hearing loss Respiratory: As described under HPI Cardiovascular: As described under HPI Gastrointestinal: No constipation, No diarrhea, No nausea, No vomiting Genitourinary: No dysuria, No hematuria, No urine frequency changes Musculoskeletal: back pain (mild, chronic) Skin: No rash Psychiatric/Neurological: No seizure, No focal weakness, No syncope Hematologic: No bleeding abnormalities HKX-Nehhme-Acobrn Hx Patient Social History Smoking Status: Never a Smoker 2nd Hand Smoke Exposure: No Have you traveled recently?: No Alcohol Use?: No Pt feels they are or have been: No Immunizations Up To Date Date of Pneumonia Vaccine: Jul 02, 2011 Date of Influenza Vaccine: Apr 29, 2014 Past Medical History PMH As described under Assessment. Family Medical History Family History: Cancer 03 FATHER (PROSTATE) Cataract 03 MOTHER Chest pain 03 MOTHER Congestive heart failure 03 FATHER Family history: Arthritis 03 FATHER 03 MOTHER Family history: Asthma 03 MOTHER Family history: Hypertension 03 FATHER 03 MOTHER Heart disease 03 FATHER Myocardial infarction 03 MOTHER Prostate cancer 03 FATHER Stroke 03 MOTHER No Family History of: Abdominal aortic aneurysm [place]'s disease Alcoholism Aphasia Cancer of colon Congenital heart disease Cystic fibrosis Dementia Dysphagia Family history: Allergy Family history: Alzheimer's disease Family history: Breast disease Family history: Cardiovascular disease Family history: Coronary thrombosis Family history: Diabetes mellitus Family history: Gastrointestinal disease Family history: Glaucoma Family history: Osteoporosis Family history: Thyroid disorder Headache Hearing loss Hereditary disease History of - anemia History of - disorder History of - respiratory disease History of drug abuse Human immunodeficiency virus (HIV) seropositivity Hypercholesterolemia Infertile Kidney disease Malignant neoplasm of lung Parkinson's disease Psychotic disorder Seizure disorder Tuberculosis Visual impairment Allergies and Home Medications Allergies Coded Allergies: cefuroxime (Verified Allergy, Unknown, PATIENT HAS RECEIVED ROCEPHIN W/O ISSUE, 03/14/16) Uncoded Allergies: PAPER TAPE (Adverse Reaction, Unknown, 09/08/14) Home Medications Acetaminophen 500 Mg Tablet, 1,000 MG PO Q6H PRN for PAIN-MILD, (Reported) Last Action: Reviewed Albuterol Sulfate 1 Puff Puff, 1-2 PUFF IH Q4H PRN for SHORTNESS OF BREATH, (Reported) Last Action: Reviewed Aspirin 81 Mg Tab.chew, 81 MG PO DAILY Prescribed by: KENRICK WILDE on 12/23/20 1407 Carisoprodol 350 Mg Tablet, 350 MG PO HS PRN for MUSCLE SPASMS, (Reported) Last Action: Reviewed Fluticasone Propionate 9.9 Ml [place].susp, 1 SPRAY NSEACH HS PRN for ALLERGIES, (Reported) Last Action: Reviewed Glimepiride 4 Mg Tablet, 4 MG PO DAILY, (Reported) Last Action: Reviewed Lisinopril/Hydrochlorothiazide 1 Each Tablet, 1 TAB PO BID, (Reported) LAST FILLED #180 ON 08-11-2018 Last Action: Reviewed Loratadine 10 Mg Tablet, 10 MG PO DAILY PRN for ALLERGIES, (Reported) Last Action: Reviewed Meloxicam 15 Mg Tablet, 15 MG PO UD, (Reported) TAKES 1 TABLET DAILY FOR 2 WEEKS, THEN IS OFF FOR 2 WEEKS- THEN REPEATS Last Action: Reviewed Metoprolol Tartrate 100 Mg Tablet, 100 MG PO HS, (Reported) Last Action: Reviewed Montelukast Sodium 10 Mg Tablet, 10 MG PO HS, (Reported) Last Action: Reviewed Polyvinyl Alcohol/Povidone/Pf 1 Each Droperette, 1 DROP OU TID PRN for dry eyes, (Reported) Last Action: Reviewed Patient Home Medication List Home Medication List Reviewed: Yes Physical Exam-Cardiology Physical Exam Vital Signs/I&O 12/23/20 12/23/20 12/23/20 12/23/20 07:00 07:27 08:20 11:21 Temp 36.8 37.0 Pulse 61 50 62 Resp 18 18 B/P (MAP) 109/75 (86) 126/80 (95) Pulse Ox 97 98 O2 Delivery Room Air Room Air Room Air 12/23/20 12/23/20 12/23/20 12:51 12:52 14:18 Pulse 63 B/P (MAP) O2 Delivery Room Air 12/22/20 23:59 Intake Total 250 ml Balance 250 ml Capillary Refill : Less Than 3 Seconds Constitutional: AAO x 3, well-developed, well-nourished HEENT: PERRL, EOMI, hearing is well preserved Neck: carotid pulses are 2 + bilaterally, with good upstrokes Respiratory: No accessory muscle use; other (good, bilateral air entry) Cardiovascular: No regular rate-rhythm; S1 and S2, systolic murmur (faint NANCY at card base) Gastrointestinal: No tender; soft; No guarding, No rebound; audible bowel sounds Extremities: No clubbing, No cyanosis, No significant edema Neurologic/Psychiatric: other (moves all her limbs equally) Skin: No rash on exposed areas, No ulcerations on exposed areas Data Review Labs Laboratory Tests 12/22/20 18:20: Troponin I 0.045H 12/22/20 20:43: Glucometer 102 12/23/20 01:20: Troponin I < 0.028, White Blood Count 7.7, Red Blood Count 4.22, Hemoglobin 11.3L, Hematocrit 36, Mean Corpuscular Volume 85, Mean Corpuscular Hemoglobin 27, Mean Corpuscular Hemoglobin Concent 31L, Red Cell Distribution Width 12.7, Platelet Count 185, Mean Platelet Volume 9.8, Immature Granulocyte % (Auto) 0, Neutrophils (%) (Auto) 52, Lymphocytes (%) (Auto) 38, Monocytes (%) (Auto) 7, Eosinophils (%) (Auto) 2, Basophils (%) (Auto) 1, Neutrophils # (Auto) 4.0, Lymphocytes # (Auto) 2.9, Monocytes # (Auto) 0.5, Eosinophils # (Auto) 0.2, Basophils # (Auto) 0.1, Immature Granulocyte # (Auto) 0.0, Sodium Level 141, Potassium Level 3.4L, Chloride Level 103, Carbon Dioxide Level 27, Anion Gap 11, Blood Urea Nitrogen 19H, Creatinine 1.23, Estimat Glomerular Filtration Rate 52, BUN/Creatinine Ratio 15, Glucose Level 218H, Calcium Level 9.0, Triglycerides Level 147, Cholesterol Level 168, LDL Cholesterol Direct 113, VLDL Cholesterol 29, HDL Cholesterol 38L 12/23/20 06:45: Glucometer 135H 12/23/20 07:03: Troponin I < 0.028 12/23/20 10:19: Glucometer 163H Laboratory Tests 12/22/20 16:11 12/23/20 01:20 A/P-Cardiology Assessment/Admission Diagnosis Chest discomfort, non-cardiac, etiology undetermined. - troponins during this hospitalization <0.028, 0.045, <0.028, <0.028 (this does not fit any pattern of acute coronary syndrome) Palpitations - infrequent, isolated PACs seen during this hospitalization [place], noncardiac, based on cardiac w/u in November 2020 - MPI of 12/04/20: no ischemia or infarction, LVEF 73# - Echo of 11/29/20: LVEF 55-60%, PASP 25 - 30 mmHg HTN, controlled DM II, managed by pcp Elevated BMI of approx 35 Discussion and Recomendations * I reviewed and discussed her CV issues with her and answered questions * She wishes to go home. That appears reasonable, given no current symptoms and no evidence of ACS * Outpt f/u advised * Advised to return to ER for any recurrence of symptoms or new symptoms MALA VILLANUEVA MD FACP FAC CCDS Dec 23, 2020 16:39
--- NOTE | 2020-12-23 17:12 | Discharge Summary ---
Discharge Summary Hospital Course Problems/Dx: (1) Chest pain Status: Acute Hospital Course Date of Admission: Dec 22, 2020 at 19:40 Admission Diagnosis : Chest pain Family Physician/Provider: Sharon Boo DO Date of Discharge: 12/23/20 Discharge Diagnosis: Chest pain Hospital Course: John Silverman is a 70 year old female who was admitted to observation due to chest pain. Cardiology was consulted and assisted with her care. She underwent serial troponin testing which was initially negative, then mildly elevated, then returned to normal. She had been having palpitations and intermittent chest pain prior to admission and had been worked up as an outpatient with a stress test which was reportedly negative. Her chest pain resolved and she was discharged home. She will follow up with Cardiology and her PCP. She was discharged home in stable condition. Labs and Pending Lab Test: Laboratory Tests 12/22/20 18:20: Troponin I 0.045H 12/22/20 20:43: Glucometer 102 12/23/20 01:20: Troponin I < 0.028, White Blood Count 7.7, Red Blood Count 4.22, Hemoglobin 11.3L, Hematocrit 36, Mean Corpuscular Volume 85, Mean Corpuscular Hemoglobin 27, Mean Corpuscular Hemoglobin Concent 31L, Red Cell Distribution Width 12.7, Platelet Count 185, Mean Platelet Volume 9.8, Immature Granulocyte % (Auto) 0, Neutrophils (%) (Auto) 52, Lymphocytes (%) (Auto) 38, Monocytes (%) (Auto) 7, Eosinophils (%) (Auto) 2, Basophils (%) (Auto) 1, Neutrophils # (Auto) 4.0, Lymphocytes # (Auto) 2.9, Monocytes # (Auto) 0.5, Eosinophils # (Auto) 0.2, Basophils # (Auto) 0.1, Immature Granulocyte # (Auto) 0.0, Sodium Level 141, Potassium Level 3.4L, Chloride Level 103, Carbon Dioxide Level 27, Anion Gap 11, Blood Urea Nitrogen 19H, Creatinine 1.23, Estimat Glomerular Filtration Rate 52, BUN/Creatinine Ratio 15, Glucose Level 218H, Calcium Level 9.0, Triglycerides Level 147, Cholesterol Level 168, LDL Cholesterol Direct 113, VLDL Cholesterol 29, HDL Cholesterol 38L 12/23/20 06:45: Glucometer 135H 12/23/20 07:03: Troponin I < 0.028 12/23/20 10:19: Glucometer 163H Home Meds Active Aspirin 81 Mg Tab.chew 81 Mg PO DAILY 30 Days Reported Proair Hfa (Albuterol Sulfate) 1 Puff Puff 1-2 Puff IH Q4H PRN Refresh Classic Eye Drops (Polyvinyl Alcohol/Povidone/Pf) 1 Each Droperette 1 Drop OU TID PRN Lisinopril-Hctz 20-12.5 mg Tab (Lisinopril/Hydrochlorothiazide) 1 Each Tablet 1 Tab PO BID LAST FILLED #180 ON 08-11-2018 Glimepiride 4 Mg Tablet 4 Mg PO DAILY Meloxicam 15 Mg Tablet 15 Mg PO UD TAKES 1 TABLET DAILY FOR 2 WEEKS, THEN IS OFF FOR 2 WEEKS- THEN REPEATS Singulair (Montelukast Sodium) 10 Mg Tablet 10 Mg PO HS Metoprolol Tartrate 100 Mg Tablet 100 Mg PO HS Soma (Carisoprodol) 350 Mg Tablet 350 Mg PO HS PRN Acetaminophen 500 Mg Tablet 1,000 Mg PO Q6H PRN Flonase Allergy Relief (Fluticasone Propionate) 9.9 Ml Brilliant.susp 1 Brilliant NSEACH HS PRN Loratadine 10 Mg Tablet 10 Mg PO DAILY PRN Assessment/Pt Instructions Take medications as prescribed. Follow up with your doctor. Return with worsening symptoms. Discharge Planning: <30 minutes discharge planning Discharge Instructions Discharge Diet: Low Sodium Diet Activity as Tolerated: Yes Consultations Cardiology Discharge Physical Examination Vital Signs Vital Signs Date Time Temp Pulse Resp B/P (MAP) Pulse Ox O2 Delivery O2 Flow Rate FiO2 12/23/20 14:18 12/23/20 12:52 63 12/23/20 12:51 Room Air 12/23/20 11:21 37.0 18 98 12/23/20 00:00 2.00 General Appearance: No Apparent Distress, Obese HEENT: PERRL/EOMI, Pharynx Normal Respiratory: Lungs Clear, Normal Breath Sounds, No Respiratory Distress Cardiovascular: Regular Rate, Rhythm, No Edema, Normal Peripheral Pulses Gastrointestinal: Normal Bowel Sounds, Non Tender, Soft Extremity: Normal Inspection, Non Tender, No Pedal Edema Skin: Normal Color, Warm/Dry Neurologic/Psychiatric: Alert, Oriented x3, No Motor/Sensory Deficits, Normal Mood/Affect Allergies: Coded Allergies: cefuroxime (Verified Allergy, Unknown, PATIENT HAS RECEIVED ROCEPHIN W/O ISSUE, 03/14/16) Uncoded Allergies: PAPER TAPE (Adverse Reaction, Unknown, 09/08/14) Copy Copies To 1: SHARON BOO DO Discharge Summary Date of Admission Dec 22, 2020 at 19:40 Date of Discharge Dec 23, 2020 at 14:18 Discharge Date: Dec 23, 2020 Discharge Time: 14:18 Admission Diagnosis Chest pain Consults/Procedures Consulations Cardiology Discharge Diagnosis (1) Chest pain Status: Acute TOBI BARBER MD Dec 23, 2020 17:10
== END 2020-12-23 14:18 | disposition home or self-care (01) ==
LOC: EDUNIT# 15:57 → ER 15:58 → CSD 19:40
PROVIDERS: ADMIT Internal Medicine; ATTEND Internal Medicine
DX: R07.89 Other chest pain (principal); I24.9 Acute ischemic heart disease, unspecified; I10 Essential (primary) hypertension; K21.9 Gastro-esophageal reflux disease without esophagitis; J42 Unspecified chronic bronchitis; E11.9 Type 2 diabetes mellitus without complications; Z79.84 Long term (current) use of oral hypoglycemic drugs; Z79.82 Long term (current) use of aspirin; Z79.899 Other long term (current) drug therapy; Z90.710 Acquired absence of both cervix and uterus; Z82.61 Family history of arthritis; Z80.42 Family history of malignant neoplasm of prostate; Z82.3 Family history of stroke
CPT/HCPCS: 71045; 80048; 80053; 80061; 82947 ×2; 83735; 83874; 83880; 84484 ×2; 85025 ×2; 85379; 85610; 85730; 86141; 87636; 93005 ×2; 93041; 96372; 96374; 99284; G0378; 36415

== ENCOUNTER 2021-04-25 10:00 | Outpatient (RCR) | payer MEDICARE ==
[~2021-04-25 10:00] MED LIST changes: +ASPI-999 PO
[2021-05-17] MEDS ORDERED: GLIM2TAB4 PO (12:07)
== END 2021-06-28 | disposition home or self-care (01) ==
LOC: CARD 10:00
PROVIDERS: ATTEND Internal Medicine Cardiovascular Disease
DX: R00.2 Palpitations (principal)

== ENCOUNTER 2021-05-10 18:22 | Emergency (ER) | payer MEDICARE ==
[~2021-05-10] VITALS: Ht 154.9 cm; Wt 84.8 kg
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
[2021-05-10 19:18] VITALS: BP 165/89
== END 2021-05-10 19:18 | disposition home or self-care (01) ==
LOC: EDUNIT# 18:22 → ER FS 18:23
DX: S20.211A Contusion of right front wall of thorax, initial encounter (principal); I10 Essential (primary) hypertension; E11.9 Type 2 diabetes mellitus without complications; Z79.82 Long term (current) use of aspirin; Z79.899 Other long term (current) drug therapy; V89.2XXA Person injured in unspecified motor-vehicle accident, traffic, initial encounter
CPT/HCPCS: 71045; 72020; 73000

== ENCOUNTER 2021-05-17 10:44 | Emergency (ER) | payer OTHER, MEDICARE ==
[~2021-05-17] VITALS: Ht 154 cm; Wt 84.0 kg
[2021-05-17] MEDS ORDERED: DEXTROSE 50% 50 ML (IMS) SYR ONE (11:06)
[2021-05-17] MEDS ORDERED: DEXTROSE 50% 50 ML (IMS) SYR IV ONE (11:15)
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
[2021-05-17 11:32] LABS: BASOPHILS # (AUTO) 0.1 10^3/uL (0.0-0.1); BASOPHILS % (AUTO) 1 % (0-10); EOSINOPHILS # (AUTO) 0.2 10^3/uL (0.0-0.3); EOSINOPHILS % (AUTO) 3 % (0-10); HEMATOCRIT 40 % (35-52); HEMOGLOBIN 12.7 g/dL (11.5-16.0); LYMPHOCYTES # (AUTO) 2.2 10^3/uL (1.0-4.0); LYMPHOCYTES % (AUTO) 36 % (12-44); MEAN CORPUSCULAR HEMOGLOBIN 27 pg (25-34); MEAN CORPUSCULAR HGB CONC 32 g/dL (32-36); MEAN CORPUSCULAR VOLUME 86 fL (80-99); MEAN PLATELET VOLUME 10.2 fL (9.0-12.2); MONOCYTES # (AUTO) 0.4 10^3/uL (0.0-1.0); MONOCYTES % (AUTO) 6 % (0-12); NEUTROPHILS # (AUTO) 3.2 10^3/uL (1.8-7.8); NEUTROPHILS % (AUTO) 53 % (42-75); PLATELET COUNT 235 10^3/uL (130-400); WHITE BLOOD COUNT 6.1 10^3/uL (4.3-11.0)
[2021-05-17 11:37] LABS: ALBUMIN 4.2 GM/DL (3.2-4.5); CHLORIDE 105 MMOL/L (98-107); SODIUM 140 MMOL/L (135-145)
[2021-05-17 11:39] LABS: CALCIUM 9.4 MG/DL (8.5-10.1)
[2021-05-17 11:40] LABS: TOTAL PROTEIN 7.5 GM/DL (6.4-8.2)
[2021-05-17 11:41] LABS: CARBON DIOXIDE 22 MMOL/L (21-32); FIBRIN DEGRADATION PRODUCTS 0.31 UG/ML (0.00-0.49); INR 0.9 (0.8-1.4); PROTHROMBIN TIME PATIENT 12.8 SEC (12.2-14.7)
[2021-05-17 11:42] LABS: BILIRUBIN,TOTAL 0.3 MG/DL (0.1-1.0)
[2021-05-17 11:43] LABS: ALKALINE PHOSPHATASE 105 U/L (40-136); CREATININE SERUM 1.26 MG/DL (0.60-1.30); GFR ESTIMATED 51
[2021-05-17 11:44] LABS: BUN/CREATININE RATIO 19
[2021-05-17 11:46] LABS: ALANINE AMINOTRANSFERASE 13 U/L (0-55)
[2021-05-17 11:51] LABS: BILIRUBIN,URINE NEGATIVE (NEGATIVE); CLARITY,URINE CLEAR; COLOR,URINE YELLOW; GLUCOSE, URINE (UA) NEGATIVE (NEGATIVE); KETONES,URINE NEGATIVE (NEGATIVE); LEUKOCYTE ESTERASE ,URINE NEGATIVE (NEGATIVE); NITRITE,URINE NEGATIVE (NEGATIVE); PH,URINE 5.5 (5-9); PROTEIN,URINE NEGATIVE (NEGATIVE)
[2021-05-17 11:55] LABS: GLUCOSE 46 MG/DL (70-105)
[2021-05-17 12:04] LABS: BACTERIA,URINE NEGATIVE /HPF
[2021-05-17] MEDS ORDERED: GLIM2TAB4 PO (12:07)
[2021-05-17 12:32] VITALS: BP 144/84
== END 2021-05-17 13:04 | disposition home or self-care (01) ==
LOC: EDUNIT# 10:44 → ER 10:46
DX: E11.649 Type 2 diabetes mellitus with hypoglycemia without coma (principal); I10 Essential (primary) hypertension; Z79.82 Long term (current) use of aspirin
CPT/HCPCS: 36415; 70450; 71045; 80053; 81000; 82947; 84484; 85025; 85379; 85610; 85730; 93005; 93041

== ENCOUNTER → 2021-07-04 | Outpatient (CLI) | payer MEDICARE, OTHER ==
[~2021-07-04] MED LIST changes: +GLIM2TAB4 PO
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
== END ==
LOC: RAD 12:59
PROVIDERS: ATTEND Chiropractor
DX: M16.11 Unilateral primary osteoarthritis, right hip (principal); V89.2XXA Person injured in unspecified motor-vehicle accident, traffic, initial encounter

== ENCOUNTER 2022-01-30 13:34 | Emergency (ER) | payer MEDICARE ==
[~2022-01-30] VITALS: Ht 154.9 cm; Wt 84.8 kg
--- NOTE | 2022-01-30 13:58 | ED Fall/Injury ---
General Chief Complaint: Trauma-Non Activation Stated Complaint: FELL Source: patient Exam Limitations: no limitations (EMILE RINCON) History of Present Illness Date Seen by Provider: Jan 30, 2022 Time Seen by Provider: 13:56 Initial Comments Patient is a 71-year-old female who presents to the ED for evaluation after a fall. Patient fell 30 minutes ago. She was walking down the stairs missed a step slid and tumbled to the bottom. She landed on her lower back. She is complaining of right-sided neck pain, right collarbone and shoulder pain. Patient was placed in c-collar by EMS. She denies hitting her head loss of conscious or on blood thinners. Patient has a sling to the right shoulder. She was able to move the shoulder but had pain and discomfort. Denies of any chest pain, abdominal pain vomiting, diarrhea, hip pain. Able to stand and bear weight. Denies taking anything for pain. (EMILE RINCON) Allergies and Home Medications Allergies Coded Allergies: cefuroxime (Verified Allergy, Unknown, PATIENT HAS RECEIVED ROCEPHIN W/O ISSUE, 03/14/16) Uncoded Allergies: PAPER TAPE (Adverse Reaction, Unknown, 09/08/14) Patient Home Medication List Home Medication List Reviewed: Yes (EMILE RINCON) Acetaminophen (Acetaminophen) 500 Mg Tablet, 1,000 MG PO Q6H PRN for PAIN-MILD, (Reported) Entered as Reported by: CECILIA MICHAELS on 03/14/16 0910 Albuterol Sulfate (Proair Hfa) 1 Puff Puff, 1-2 PUFF IH Q4H PRN for SHORTNESS OF BREATH, (Reported) Entered as Reported by: KEN MASSEY on 12/17/18 0844 Aspirin (Aspirin) 81 Mg Tab.chew, 81 MG PO DAILY Prescribed by: KENRICK WILDE on 12/23/20 1407 Carisoprodol (Soma) 350 Mg Tablet, 350 MG PO HS PRN for MUSCLE SPASMS, (Rep orted) Entered as Reported by: CECILIA MICHAELS on 03/14/16 0910 Fluticasone Propionate (Flonase Allergy Relief) 9.9 Ml [place].susp, 1 SPRAY NSEACH HS PRN for ALLERGIES, (Reported) Entered as Reported by: CECILIA MICHAELS on 03/14/16 09 Glimepiride (Glimepiride) 4 Mg Tablet, 4 MG PO DAILY, (Reported) Entered as Reported by: KEN MASSEY on 12/17/18843 Glimepiride (Glimepiride) 2 Mg Tablet, 2 MG PO DAILY Prescribed by: DAYANARA WHITLOCK on 05/17/21 1207 Lisinopril/Hydrochlorothiazide (Lisinopril-Hctz 20-12.5 mg Tab) 1 Each Tablet, 1 TAB PO BID, (Reported) Entered as Reported by: KEN MASSEY on 12/17/18843 Loratadine (Loratadine) 10 Mg Tablet, 10 MG PO DAILY PRN for ALLERGIES, (Reported) Entered as Reported by: CECILIA MICHAELS on 03/14/16 09 Meloxicam (Meloxicam) 15 Mg Tablet, 15 MG PO UD, (Reported) Entered as Reported by: KEN MASSEY on 12/17/18843 Metoprolol Tartrate (Metoprolol Tartrate) 100 Mg Tablet, 100 MG PO HS, (Reported) Entered as Reported by: CECILIA MICHAELS on 03/14/16 09 Montelukast Sodium (Singulair) 10 Mg Tablet, 10 MG PO HS, (Reported) Entered as Reported by: CECILIA MICHAELS on 03/14/16927 Polyvinyl Alcohol/Povidone/Pf (Refresh Classic Eye Drops) 1 Each Droperette, 1 DROP OU TID PRN for dry eyes, (Reported) Entered as Reported by: KEN MASSEY on 12/17/18843 Review of Systems Review of Systems Constitutional: No chills, No diaphoresis, No malaise, No weakness Eyes: Denies Drainage, Denies Decreased Acuity Ears, Nose, Mouth, Throat: denies ear pain, denies ear discharge Respiratory: No cough, No short of breath Cardiovascular: No chest pain, No edema Gastrointestinal: No abdominal pain, No diarrhea, No nausea, No vomiting Genitourinary: No decreased output, No discharge Musculoskeletal: back pain, joint pain, joint swelling, muscle pain (EMILE RINCON) All Other Systems Reviewed Negative Unless Noted: Yes (EMILE RINCON) Past Kjfjzsu-Aukznz-Qgejev Hx Immunizations Up To Date First/Initial COVID19 Vaccinat: UNKNOWN Second COVID19 Vaccination Doanvon: MODERNA (EMILE RINCON) Past Medical History Surgeries: Yes (jul 2014 left total knee, cataract) Cardiac, Eye Surgery, Gallbladder, Hysterectomy, Joint Replacement, Orthopedic Respiratory: Yes Pneumonia, Chronic Bronchitis Cardiac: Yes (heart cath with no intervention) Hypertension Neurological: No 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 Sexually Transmitted Disease: No Bladder Infection Gastrointestinal: Yes Gastroesophageal Reflux Musculoskeletal: Yes (LEFT KNEE SCOPE,) Chronic Back Pain Endocrine: Yes Diabetes, Insulin dep Cataract Cancer: No Psychosocial: No Integumentary: No Blood Disorders: No (EMILE RINCON) Family Medical History Cancer 03 FATHER (PROSTATE) Cataract 03 MOTHER Chest pain 03 MOTHER Congestive heart failure 03 FATHER Family history: Arthritis 03 FATHER 03 MOTHER Family history: Asthma 03 MOTHER Family history: Hypertension 03 FATHER 03 MOTHER Heart disease 03 FATHER Myocardial infarction 03 MOTHER Prostate cancer 03 FATHER Stroke 03 MOTHER No Family History of: Abdominal aortic aneurysm Trino's disease Alcoholism Aphasia Cancer of colon Congenital heart disease Cystic fibrosis Dementia Dysphagia Family history: Allergy Family history: Alzheimer's disease Family history: Breast disease Family history: Cardiovascular disease Family history: Coronary thrombosis Family history: Diabetes mellitus Family history: Gastrointestinal disease Family history: Glaucoma Family history: Osteoporosis Family history: Thyroid disorder Headache Hearing loss Hereditary disease History of - anemia History of - disorder History of - respiratory disease History of drug abuse Human immunodeficiency virus (HIV) seropositivity Hypercholesterolemia Infertile Kidney disease Malignant neoplasm of lung Parkinson's disease Psychotic disorder Seizure disorder Tuberculosis Visual impairment Physical Exam Vital Signs Vital Signs - First Documented (MALGORZATA LEWIS MD) Vital Signs Capillary Refill : (EMILE RINCON) Height, Weight, BMI Height: 5'1.00" Weight: 199lbs. 1.6oz. [id number]; 35.00 BMI Method:Stated General Appearance: WD/WN, no apparent distress HEENT: PERRL/EOMI, normal ENT inspection, TMs normal, pharynx normal Neck: other (C-collar in place. Right-sided cervical paraspinal muscle tenderness) Cardiovascular: regular rate, rhythm, no edema, no gallop, no JVD Respiratory: chest non-tender, lungs clear, normal breath sounds, no respiratory distress, no accessory muscle use Gastrointestinal: normal bowel sounds, non tender, soft, no organomegaly Pelvic: normal external exam Back: vertebral tenderness (Lumbar lower midline tenderness. No swelling, erythema or ecchymosis noted to the back) Extremities: normal range of motion (Normal active range of motion lower extremities.), other (Tenderness to the right anterior shoulder and clavicle. Normal passive range of motion but with pain and discomfort. 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 GCS 15. Alert and orient x3. Passive range of motion tenderness to right shoulder without obvious deformity. CT scan of the head and cervical neck was negative for acute abnormality. C-collar removed and cleared. She is complaining of lower back pain during her stay but denies of lower back pain after the fall. CT scan the lower spine was negative. No bowel or urine incontinence or saddle paresthesia. X-ray of the right shoulder was negative for fracture. She was given Tylenol per her request. Patient with a steady gait. Discussed with patient this appears to be more muscle at this time. Due to reassuring imaging recommend conservative treatment at home. She has pain medication at home that she will take. Recommend rest for the next week. If continued pain over the next 7 to 10 days follow-up outpatient only with your primary for further imaging to rule out subtle fracture. Patient agrees with plan of action. Discussed some range of motion exercises of the right shoulder (EMILE RINCON) Impression Primary Impression: Shoulder pain Additional Impression: Sprain of cervical neck Disposition: 01 HOME, SELF-CARE Condition: Stable Departure-Patient Inst. Decision time for Depature: 14:50 (EMILE RINCON) Referrals: ARMANDO MOCTEZUMA (PCP/Family) Primary Care Physician Patient Instructions: Neck Sprain (DC) Add. Discharge Instructions: Recommend with your Tylenol and ibuprofen at home for pain. May try a sling for comfort. Work on range of motion's exercise as tolerated. If pain progress over the next 7 to 10 days would recommend following up with your primary for further evaluation and imaging. All discharge instructions reviewed with patient and/or family. Voiced understanding. PHYSICIAN ATTESTATION NOTE: I was present in the ER while EXECUTIVE ADMIN / PA saw the patient, but I was not involved in the care, exam, or management of the patient. (MALGORZATA LEWIS MD) EMILE RINCON Jan 30, 2022 13:58 MALGORZATA LEWIS MD Feb 01, 2022 23:05
--- NOTE | 2022-01-30 14:30 | Diagnostic Imaging Report ---
CLINICAL INDICATION: Patient sled down 4-5 stairs landing on her tailbone. Patient complains of right shoulder and tailbone pain. EXAM: Head CT without IV contrast with sagittal and coronal reformations. Axial CT scan of the cervical spine with sagittal and coronal reformations. Auto Exposure Controls were utilized during the CT exam to meet ALARA standards for radiation dose reduction. COMPARISON: Head CT without contrast dated 05/17/2021. X-ray of the cervical spine dated 05/10/2021. FINDINGS: Head CT: There is no evidence of acute cerebral infarct, intracranial hemorrhage, or gross mass effect. The brain parenchymal volume appears appropriate for patient's age. There are subtle patchy areas of low density involving the white matter of both cerebral hemispheres likely representing chronic small vessel ischemic disease. There is normal holm-white matter distinction. There is no significant midline shift or herniation. There is no evidence of hydrocephalus. The basal cisterns are unremarkable. The skull, extracranial soft tissue, and orbits are unremarkable. The paranasal sinuses are unremarkable. Temporal bones show no significant abnormality. Cervical spine: There is no acute cervical spine fracture or dislocation. There is reversal of the cervical lordosis. There is severe loss of disc space height at C5-C6 and C6-C7 levels. There are degenerative spurs involving the cervical spine. There is llpjnsns-lh-efiewq bilateral C6-C7 neural foramen narrowing and cifdufqc-tc-kjzmie left C5-C6 neural foramen narrowing. There is no significant neck soft tissue abnormality. Visualized upper lung barraza are clear. IMPRESSION: 1: There is no evidence of acute intracranial process. 2: There is cervical spine degenerative disease with no acute fracture or dislocation. Dictated by: Dictated on workstation # [id number]
--- NOTE | 2022-01-30 14:36 | Diagnostic Imaging Report ---
CLINICAL INDICATION: Patient slid down 4-5 stairs landing on her tailbone. Patient complains of pain in right shoulder and tailbone. EXAM: X-ray of the right shoulder, 4 views. COMPARISON: None. FINDINGS: There is no acute fracture or dislocation. There are mild to moderately hypertrophic spurs involving the right acromioclavicular region. IMPRESSION: There is no acute fracture or dislocation. Dictated by: Dictated on workstation # [id number]
--- NOTE | 2022-01-30 14:38 | Diagnostic Imaging Report ---
CLINICAL INDICATION: Patient sled down 4-5 stairs landing on her tailbone. Patient complains of pain in the right shoulder and tailbone. EXAM: Axial CT scan of the lumbar spine without IV contrast. Sagittal and coronal reformatted images are created. Auto Exposure Controls were utilized during the CT exam to meet ALARA standards for radiation dose reduction. COMPARISON: CT scan of the abdomen and pelvis without contrast dated 09/08/2014. FINDINGS: There is no acute lumbar spine fracture. There is subtle degenerative grade 1 anterolisthesis of L3 on L4 with no pars defect. There are lumbar spine degenerative spurs and facet arthropathy/hypertrophy. Stable small sclerotic and lytic area involving the right L2 pedicle and facet region likely representing a benign process. There is no significant paraspinal soft tissue abnormality. L1-L2 and L2-L3: There is facet arthropathy with no significant bony central canal or neural foramen narrowing. L3-L4: There is a diffuse disc bulge with severe bilateral facet arthropathy/hypertrophy at the L3-L4 level with severe central canal stenosis and at least moderate bilateral neural foramen narrowing. L4-L5: There is severe facet arthropathy/hypertrophy at the L4-L5 level with diffuse disc bulge with severe central canal stenosis. There is mltlisat-yh-lctzxs bilateral L4-L5 neural foramen narrowing. L5-S1: There is moderate bilateral facet arthropathy/hypertrophy at the L5-S1 level with at least mild bilateral neural foramen narrowing and no significant central canal stenosis. IMPRESSION: 1: There is no acute lumbar spine fracture. 2: There is eavckhyx-lw-deiehd lumbar spine degenerative disease, as described above. 3: Of note, the lower aspect of the sacrum and coccyx is not imaged on this exam and cannot be evaluated. If this area needs to be evaluated, CT scan of the sacrum/coccyx would better evaluate. Dictated by: Dictated on workstation # [id number]
[2022-01-30] MEDS ORDERED: ACETAMINOPHEN 500 MG TAB (TYLENOL) PO ONE (14:45)
[2022-01-30 15:15] VITALS: BP 168/79
== END 2022-01-30 15:15 | disposition home or self-care (01) ==
LOC: EDUNIT# 13:34 → ER 13:36
DX: S13.9XXA Sprain of joints and ligaments of unspecified parts of neck, initial encounter (principal); M25.511 Pain in right shoulder; E11.9 Type 2 diabetes mellitus without complications; Z79.4 Long term (current) use of insulin; W10.9XXA Fall (on) (from) unspecified stairs and steps, initial encounter; Y93.01 Activity, walking, marching and hiking
CPT/HCPCS: 70450; 72125; 72131; 73030; 99283; A4565

== ENCOUNTER 2022-02-24 14:23 | Outpatient (RCR) | payer MEDICARE | END 2022-02-26 | disposition home or self-care (01) | PROVIDERS: ATTEND Physician Assistant | DX: M54.50 Low back pain, unspecified (principal); G89.29 Other chronic pain; I10 Essential (primary) hypertension; E11.9 Type 2 diabetes mellitus without complications ==

== ENCOUNTER 2022-03-25 15:06 | Outpatient (RCR) | payer MEDICARE | END 2022-03-28 | disposition home or self-care (01) | PROVIDERS: ATTEND Physician Assistant | DX: M54.50 Low back pain, unspecified (principal); G89.29 Other chronic pain; I10 Essential (primary) hypertension; E11.9 Type 2 diabetes mellitus without complications ==

== ENCOUNTER 2022-08-25 19:37 | Emergency (ER) | payer MEDICARE ==
[~2022-08-25] VITALS: Ht 154.9 cm; Wt 79.3 kg
[~2022-08-25 19:37] MED LIST changes: +ALBU8.5H6 IH; -RT-ALBUINH IH
[2022-08-25] MEDS ORDERED: hydrALAZINE (APESOLINE) 20 MG/ML VIAL IV ONE (20:15)
[2022-08-25] MEDS ORDERED: ASPIRIN 81 MG CHEW (CHILDREN'S ASA) PO ONE (20:15)
[2022-08-25 20:19] LABS: BASOPHILS # (AUTO) 0.1 10^3/uL (0.0-0.1); BASOPHILS % (AUTO) 1 % (0-10); EOSINOPHILS # (AUTO) 0.3 10^3/uL (0.0-0.3); EOSINOPHILS % (AUTO) 3 % (0-10); HEMATOCRIT 39 % (35-52); HEMOGLOBIN 12.8 g/dL (11.5-16.0); LYMPHOCYTES % (AUTO) 40 % (12-44); MEAN CORPUSCULAR HEMOGLOBIN 27 pg (25-34); MEAN CORPUSCULAR HGB CONC 33 g/dL (32-36); MEAN CORPUSCULAR VOLUME 83 fL (80-99); MONOCYTES # (AUTO) 0.5 10^3/uL (0.0-1.0); MONOCYTES % (AUTO) 6 % (0-12); NEUTROPHILS # (AUTO) 3.7 10^3/uL (1.8-7.8); NEUTROPHILS % (AUTO) 49 % (42-75); PLATELET COUNT 231 10^3/uL (130-400); WHITE BLOOD COUNT 7.5 10^3/uL (4.3-11.0)
[2022-08-25 20:24] LABS: INR 0.9 (0.8-1.4); PROTHROMBIN TIME PATIENT 12.1 SEC (12.2-14.7)
--- NOTE | 2022-08-25 20:28 | Diagnostic Imaging Report ---
EXAM: CHEST 1 VIEW, AP/PA ONLY INDICATION: Chest pain. COMPARISON: 05/17/2021 FINDINGS: Normal heart size and central pulmonary vascularity. Stable elevation of the right hemidiaphragm. No pleural effusion or pneumothorax. No new focal pulmonary opacity. No acute osseous findings. IMPRESSION: No acute cardiopulmonary findings. Dictated by: Dictated on workstation # [id number]
[2022-08-25 20:35] LABS: ALBUMIN 4.1 GM/DL (3.2-4.5); BILIRUBIN,TOTAL 0.2 MG/DL (0.1-1.0); CALCIUM 9.8 MG/DL (8.5-10.1); CREATININE SERUM 1.15 MG/DL (0.60-1.30); MAGNESIUM 1.8 MG/DL (1.6-2.4); POTASSIUM 3.5 MMOL/L (3.6-5.0); TOTAL PROTEIN 7.2 GM/DL (6.4-8.2)
--- NOTE | 2022-08-25 22:09 | ED Chest Pain ---
General Chief Complaint: Upper Extremity Stated Complaint: L ARM PAIN Nursing Triage Note: PT AMB TO RM 2 WITH CC OF LEFT ARM PAIN THAT STARTED IN THE SHOULDER AND MOVED DOWN THE ARM TO THE HAND 3 DAYS AGO. PT HAS DECRESE ROM IN LEFT EXTERMITY. Source: patient Exam Limitations: no limitations History of Present Illness Date Seen by Provider: Aug 25, 2022 Time Seen by Provider: 19:56 Initial Comments Here with left shoulder and left arm pain that has been going on for about 3 days but got markedly worse tonight. She took acetaminophen and 400 mg of ibuprofen about an hour prior to arrival but pain was getting worse. It is currently doing a little better. She has no significant chest pain, breathing problems, diaphoresis, weakness or dizziness. Otherwise pretty healthy and in no distress. She denies any lifting or moving strains recently that would cause shoulder pain. 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 NTG SL CONCRETE FINISHING MACHINE OPERATOR: No Associated Symptoms: No abdominal pain, No back pain, No dizziness, No nausea/vomiting, No shortness of breath, No weakness Allergies and Home Medications Allergies Coded Allergies: cefuroxime (Verified Allergy, Unknown, PATIENT HAS RECEIVED ROCEPHIN W/O ISSUE, 03/14/16) Uncoded Allergies: PAPER TAPE (Adverse Reaction, Unknown, 09/08/14) Patient Home Medication List Home Medication List Reviewed: Yes Acetaminophen (Acetaminophen) 500 Mg Tablet, 1,000 MG PO Q6H PRN for PAIN-MILD, (Reported) Entered as Reported by: CECILIA MICHAELS on 03/14/16 0910 Albuterol Sulfate (Ventolin Hfa) 1 Puff Puff, 1-2 PUFF IH Q4H PRN for SHORTNESS OF BREATH, (Reported) Entered as Reported by: KEN MASSEY on 12/17/18 0844 Aspirin (Aspirin) 81 Mg Tab.chew, 81 MG PO DAILY Prescribed by: KENRICK WILDE on 12/23/20 1407 Carisoprodol (Soma) 350 Mg Tablet, 350 MG PO HS PRN for MUSCLE SPASMS, (Reported) Entered as Reported by: CECILIA MICHAELS on 03/14/16909 Fluticasone Propionate (Flonase Allergy Relief) 9.9 Ml [place].susp, 1 SPRAY NSEACH HS PRN for ALLERGIES, (Reported) Entered as Reported by: CECILIA MICHAELS on 03/14/16909 Glimepiride (Glimepiride) 4 Mg Tablet, 4 MG PO DAILY, (Reported) Entered as Reported by: KEN MASSEY on 12/17/18 08 Glimepiride (Glimepiride) 2 Mg Tablet, 2 MG PO DAILY Prescribed by: DAYANARA WHITLOCK on 05/17/21 1207 Lisinopril/Hydrochlorothiazide (Lisinopril-Hctz 20-12.5 mg Tab) 1 Each Tablet, 1 TAB PO BID, (Reported) Entered as Reported by: KEN MASSEY on 12/17/18843 Loratadine (Loratadine) 10 Mg Tablet, 10 MG PO DAILY PRN for ALLERGIES, (Reported) Entered as Reported by: CECILIA MICHAELS on 03/14/16909 Meloxicam (Meloxicam) 15 Mg Tablet, 15 MG PO UD, (Reported) Entered as Reported by: KEN MASSEY on 12/17/18843 Metoprolol Tartrate (Metoprolol Tartrate) 100 Mg Tablet, 100 MG PO HS, (Reported) Entered as Reported by: CECILIA MICHAELS on 03/14/16927 Montelukast Sodium (Singulair) 10 Mg Tablet, 10 MG PO HS, (Reported) Entered as Reported by: CECILIA MICHAELS on 03/14/16927 Polyvinyl Alcohol/Povidone/Pf (Refresh Classic Eye Drops) 1 Each Droperette, 1 DROP OU TID PRN for dry eyes, (Reported) Entered as Reported by: KEN MASSEY on 12/17/18843 Review of Systems Review of Systems Constitutional: see HPI; No chills, No fever EENTM: No Symptoms Reported Respiratory: Denies Cough, Denies Shortness of Air Cardiovascular: Denies Chest Pain, Denies Irregular Heart Rate Gastrointestinal: Denies Nausea, Denies Vomiting Genitourinary: No Symptoms Reported Musculoskeletal: joint pain, muscle pain Skin: No change in color, No lesions Psychiatric/Neurological: No Symptoms Reported Past Ruflolr-Wqhzaf-Elrnov Hx Patient Social History Tobacco Use?: No Substance use?: No Alcohol Use?: No Immunizations Up To Date Influenza Vaccine Up-to-Date: Yes; Up-to-Date First/Initial COVID19 Vaccinat: MODERNA Second COVID19 Vaccination Donavon: Third COVID19 Vaccination Date: Past Medical History Surgery/Hospitalization HX: GOING DOWN SOME STAIRS WHILE WORKING AND SLIPPED CAUSING SELF TO SLIDE DOWN 4-5 STAIRS LANDING ON HER BOTTOM. C/O PAIN IN HER TAILBONE AND RIGHT SHOULDER. 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 Sexually Transmitted Disease: No Bladder Infection Gastrointestinal: Yes Gastroesophageal Reflux Musculoskeletal: Yes (LEFT KNEE SCOPE,) Chronic Back Pain Endocrine: Yes Diabetes, Insulin dep Cataract Cancer: No Psychosocial: No Integumentary: No Blood Disorders: No Family Medical History Reviewed Nursing Family Hx Cancer 03 FATHER (PROSTATE) Cataract 03 MOTHER Chest pain 03 MOTHER Congestive heart failure 03 FATHER Family history: Arthritis 03 FATHER 03 MOTHER Family history: Asthma 03 MOTHER Family history: Hypertension 03 FATHER 03 MOTHER Heart disease 03 FATHER Myocardial infarction 03 MOTHER Prostate cancer 03 FATHER Stroke 03 MOTHER No Family History of: Abdominal aortic aneurysm Trino's disease Alcoholism Aphasia Cancer of colon Congenital heart disease Cystic fibrosis Dementia Dysphagia Family history: Allergy Family history: Alzheimer's disease Family history: Breast disease Family history: Cardiovascular disease Family history: Coronary thrombosis Family history: Diabetes mellitus Family history: Gastrointestinal disease Family history: Glaucoma Family history: Osteoporosis Family history: Thyroid disorder Headache Hearing loss Hereditary disease History of - anemia History of - disorder History of - respiratory disease History of drug abuse Human immunodeficiency virus (HIV) seropositivity Hypercholesterolemia Infertile Kidney disease Malignant neoplasm of lung Parkinson's disease Psychotic disorder Seizure disorder Tuberculosis Visual impairment Physical Exam Vital Signs Vital Signs - First Documented 08/25/22 19:42 Temp 36.8 Pulse 73 B/P (MAP) 206/113 (144) Pulse Ox 97 O2 Delivery Room Air Capillary Refill : Height, Weight, BMI Height: 5'1.00" Weight: 199lbs. 1.6oz. 90.236753nb; 33.00 BMI Method:Stated General Appearance: No Apparent Distress, WD/WN HEENT: PERRL/EOMI, Pharynx Normal Neck: Non Tender, Supple Respiratory: Lungs Clear, Normal Breath Sounds Cardiovascular: Regular Rate, Rhythm, No Murmur Gastrointestinal: Non Tender, Soft Extremity: No Calf Tenderness; No Pedal Edema; Other (Pain with range of motion of left shoulder) Neurologic/Psychiatric: Alert, Oriented x3 Skin: Normal Color, Warm/Dry Progress/Results/Core Measures Results/Orders Lab Results Laboratory Tests Test 08/25/22 20:05 08/25/22 22:05 Range/Units White Blood Count 7.5 4.3-11.0 10^3/uL Red Blood Count 4.73 3.80-5.11 10^6/uL Hemoglobin 12.8 11.5-16.0 g/dL Hematocrit 39 35-52 % Mean Corpuscular Volume 83 80-99 fL Mean Corpuscular Hemoglobin 27 25-34 pg Mean Corpuscular Hemoglobin Concent 33 32-36 g/dL Red Cell Distribution Width 12.5 10.0-14.5 % Platelet Count 231 130-400 10^3/uL Mean Platelet Volume 10.0 9.0-12.2 fL Immature Granulocyte % (Auto) 0 % Neutrophils (%) (Auto) 49 42-75 % Lymphocytes (%) (Auto) 40 12-44 % Monocytes (%) (Auto) 6 0-12 % Eosinophils (%) (Auto) 3 0-10 % Basophils (%) (Auto) 1 0-10 % Neutrophils # (Auto) 3.7 1.8-7.8 10^3/uL Lymphocytes # (Auto) 3.0 1.0-4.0 10^3/uL Monocytes # (Auto) 0.5 0.0-1.0 10^3/uL Eosinophils # (Auto) 0.3 0.0-0.3 10^3/uL Basophils # (Auto) 0.1 0.0-0.1 10^3/uL Immature Granulocyte # (Auto) 0.0 0.0-0.1 10^3/uL Prothrombin Time 12.1 L 12.2-14.7 SEC INR Comment 0.9 0.8-1.4 Activated Partial Thromboplast Time 25 24-35 SEC Sodium Level 140 135-145 MMOL/L Potassium Level 3.5 L 3.6-5.0 MMOL/L Chloride Level 105 98-107 MMOL/L Carbon Dioxide Level 22 21-32 MMOL/L Anion Gap 13 5-14 MMOL/L Blood Urea Nitrogen 29 H 7-18 MG/DL Creatinine 1.15 0.60-1.30 MG/DL Estimat Glomerular Filtration Rate 51 BUN/Creatinine Ratio 25 Glucose Level 173 H 70-105 MG/DL Calcium Level 9.8 8.5-10.1 MG/DL Corrected Calcium 9.7 8.5-10.1 MG/DL Magnesium Level 1.8 1.6-2.4 MG/DL Total Bilirubin 0.2 0.1-1.0 MG/DL Aspartate Amino Transf (AST/SGOT) 13 5-34 U/L Alanine Aminotransferase (ALT/SGPT) 12 0-55 U/L Alkaline Phosphatase 112 40-136 U/L Myoglobin 31.5 10.0-92.0 NG/ML Troponin I < 0.028 < 0.028 <0.028 NG/ML Total Protein 7.2 6.4-8.2 GM/DL Albumin 4.1 3.2-4.5 GM/DL My Orders Orders - INDIRA TRISTAN MD Cbc With Automated Diff (08/25/22 20:13) Magnesium (08/25/22 20:13) Chest 1 View, Ap/Pa Only (08/25/22 20:13) Ekg Tracing (08/25/22 20:13) Comprehensive Metabolic Panel (08/25/22 20:13) Myoglobin Serum (08/25/22 20:13) Protime With Inr (08/25/22 20:13) Partial Thromboplastin Time (08/25/22 20:13) O2 (08/25/22 20:13) Monitor-Rhythm Ecg Trace Only (08/25/22 20:13) Lipid Panel (08/26/22 06:00) Ed Iv/Invasive Line Start (08/25/22 20:13) Troponin I [place] (08/25/22 20:13) Aspirin Chewable Tablet (Baby Aspirin Ch (08/25/22 20:15) Hydralazine Injection (Apresoline Inject (08/25/22 20:15) Troponin I [place] (08/25/22 22:05) Medications Given in ED Current Medications Medications Dose Ordered Sig/Mihai Route Start Time Stop Time Status Last Admin Dose Admin Aspirin 324 mg ONCE ONCE PO 08/25/22 20:15 08/25/22 20:16 DC 08/25/22 20:27 324 MG Hydralazine HCl 10 mg ONCE ONCE IV 08/25/22 20:15 08/25/22 20:16 DC 08/25/22 20:27 10 MG Vital Signs/I&O 08/25/22 19:42 Temp 36.8 Pulse 73 B/P (MAP) 206/113 (144) Pulse Ox 97 O2 Delivery Room Air Blood Pressure Mean: 144 Progress Progress Note : Progress Note Seen and evaluated. IV, labs including CBC, CMP, coags and troponin ordered. ASA 324 mg p.o. and hydralazine 10 mg IV ordered. Monitor patient. Differential diagnosis includes cardiac event, musculoskeletal pain 2105: I have reviewed x-ray and see no acute findings on my interpretation. EKG is normal. Labs overall nonconcerning with normal CBC, normal chemistry, negative troponin and normal coags. We will repeat troponin at 2204. Her pain is much improved and her blood pressure now is 130s over 80s. She is over all feeling much better. Monitor patient. 2244: Patient is doing much better. Repeat troponin is negative. Patient will follow-up with Dr. Bermudez. I will send a copy of the note to her. Discharged home with return precautions. Patient verbalized understanding of instructions and agreement with plan. Initial ECG Impression Date: Aug 25, 2022 Initial ECG Impression Time: 19:59 Initial ECG Rate: 73 Initial ECG Rhythm: Normal Sinus Initial ECG Impression: Normal Comment Sinus rhythm with normal axis. No evidence of ST elevation [place]. Similar to previous. Interpreted by me. Diagnostic Imaging Diagonstic Imaging: Xray Plain Films/CT/US/NM/MRI: chest Comments [facility]. [place], [place] NAME: XOCHILT FOOTE [facility] REC#: [id number] PT STATUS: REG ER : 1950 PHYSICIAN: INDIRA TRISTAN MD ADMIT DATE: 08/25/22/ER Draft Date of Exam:08/25/22 CHEST 1 VIEW, AP/PA ONLY EXAM: CHEST 1 VIEW, AP/PA ONLY INDICATION: Chest pain. COMPARISON: 05/17/2021 FINDINGS: Normal heart size and central pulmonary vascularity. Stable elevation of the right hemidiaphragm. No pleural effusion or pneumothorax. No new focal pulmonary opacity. No acute osseous findings. IMPRESSION: No acute cardiopulmonary findings. Dictated on workstation # [id number] Dict: 08/25/222024 Trans: 08/25/222026 [facility] [id number] Interpreted by: JAG MANZANO MD Electronically signed by: Departure Impression Primary Impression: Chest pain Qualified Codes: R07.9 - Chest pain, unspecified Additional Impression: Left shoulder pain Qualified Codes: M25.512 - Pain in left shoulder Disposition: 01 HOME, SELF-CARE Condition: Improved Departure-Patient Inst. Decision time for Depature: 23:00 Referrals: ARMANDO MOCTEZUMA (PCP) Primary Care Physician KAREN BERMUDEZ DO Patient Instructions: Chest Pain (DC), Shoulder Pain (DC) Add. Discharge Instructions: All discharge instructions reviewed with patient and/or family. Voiced understanding. You may take Tylenol/acetaminophen 1000 mg every 6-8 hours as needed for pain. You may take ibuprofen 400 mg or your meloxicam but do not take both at the same time. Follow-up with your doctor for recheck and further evaluation and referral as needed for the shoulder pain. Return for worse pain, fever, vomiting, weakness, breathing problems or other concerns as needed. Remember to take your metoprolol 1 tablet in the morning and 1 tablet in the evening. Copy Copies To 1: KAREN BERMUDEZ TIMOTHY D MD Aug 25, 2022 22:09
[2022-08-25 23:35] VITALS: BP 120/78
== END 2022-08-25 23:36 | disposition home or self-care (01) ==
LOC: EDUNIT# 19:37 → ER 19:37
DX: M25.512 Pain in left shoulder (principal); R07.9 Chest pain, unspecified; I10 Essential (primary) hypertension
CPT/HCPCS: 36415; 71045; 80053; 83735; 83874; 84484; 85025; 85610; 85730; 93005; 93041

== ENCOUNTER → 2022-12-26 | Outpatient (RCR) | payer MEDICARE ==
[~2022-12-26] MED LIST changes: +MONT-47 PO; -MONT10TA21 PO; +TRM50T PO
== END | disposition home or self-care (01) ==
PROVIDERS: ATTEND Orthopaedic Surgery
DX: M75.02 Adhesive capsulitis of left shoulder (principal); I10 Essential (primary) hypertension; E11.9 Type 2 diabetes mellitus without complications

== ENCOUNTER 2022-12-29 09:14 | Outpatient (RCR) | payer MEDICARE ==
[~2022-12-29 09:14] MED LIST changes: -TRM50T PO
[2023-01-04] MEDS ORDERED: TRM50T PO (15:14)
[2023-01-05] MEDS ORDERED: TRM50T PO (13:03)
== END 2023-01-26 | disposition home or self-care (01) ==
PROVIDERS: ATTEND Orthopaedic Surgery
DX: M75.02 Adhesive capsulitis of left shoulder (principal); I10 Essential (primary) hypertension; E11.9 Type 2 diabetes mellitus without complications

== ENCOUNTER 2023-01-04 13:46 | Emergency (ER) | payer MEDICARE ==
[~2023-01-04] VITALS: Ht 154 cm; Wt 77.0 kg
[2023-01-04] MEDS ORDERED: ACETAMINOPHEN 500 MG TAB (TYLENOL) PO ONE (14:15)
[2023-01-04] MEDS ORDERED: KETOROLAC 30 MG/ML VIAL IM ONE (14:15)
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
--- NOTE | 2023-01-04 14:48 | Diagnostic Imaging Report ---
EXAMINATION: Pelvis, single view. Right hip, 2 views. COMPARISON: Radiographs July 04, 2021. HISTORY: 72-year-old female, right hip and pelvic pain. FINDINGS: The pubic symphysis and sacroiliac joints are normally aligned. The hips are not dislocated. There is no joint space loss of either hip. There are vascular calcifications. There is no identified acute fracture. There are degenerative changes of the lower lumbar spine. IMPRESSION: 1. No identified acute bony abnormality of the pelvis or right hip. 2. Degenerative changes of the lower lumbar spine. Dictated by: Dictated on workstation # [id number]
[2023-01-04] MEDS ORDERED: TRM50T PO (15:14)
[2023-01-04 15:23] VITALS: BP 178/89
[2023-01-05] MEDS ORDERED: TRM50T PO (13:03)
== END 2023-01-04 15:23 | disposition home or self-care (01) ==
LOC: EDUNIT# 13:46 → ER 13:49
DX: M25.551 Pain in right hip (principal); E11.9 Type 2 diabetes mellitus without complications; Z79.1 Long term (current) use of non-steroidal anti-inflammatories (NSAID); Z79.4 Long term (current) use of insulin

== ENCOUNTER 2023-02-27 16:35 | Emergency (ER) | payer MEDICARE ==
[~2023-02-27] VITALS: Ht 154.9 cm; Wt 77.0 kg
[~2023-02-27 16:35] MED LIST changes: +TRM50T PO
[2023-02-27 16:56] LABS: BASOPHILS # (AUTO) 0.1 10^3/uL (0.0-0.1); BASOPHILS % (AUTO) 1 % (0-10); EOSINOPHILS % (AUTO) 0 % (0-10); HEMATOCRIT 42 % (35-52); HEMOGLOBIN 13.2 g/dL (11.5-16.0); LYMPHOCYTES # (AUTO) 0.4 10^3/uL (1.0-4.0); LYMPHOCYTES % (AUTO) 8 % (12-44); MEAN CORPUSCULAR HEMOGLOBIN 27 pg (25-34); MEAN CORPUSCULAR HGB CONC 31 g/dL (32-36); MEAN CORPUSCULAR VOLUME 85 fL (80-99); MEAN PLATELET VOLUME 9.4 fL (9.0-12.2); MONOCYTES # (AUTO) 0.5 10^3/uL (0.0-1.0); MONOCYTES % (AUTO) 10 % (0-12); NEUTROPHILS # (AUTO) 4.3 10^3/uL (1.8-7.8); NEUTROPHILS % (AUTO) 80 % (42-75); PLATELET COUNT 199 10^3/uL (130-400); WHITE BLOOD COUNT 5.4 10^3/uL (4.3-11.0)
[2023-02-27] MEDS ORDERED: NS IV 1000 ML 1,000 ML IV SCH (17:00)
[2023-02-27] MEDS ORDERED: ACETAMINOPHEN 500 MG TABLET PO ONE (17:00)
[2023-02-27] MEDS ORDERED: ACETAMINOPHEN 500 MG TABLET ONE (17:01)
[2023-02-27 17:13] LABS: ALBUMIN 4.3 GM/DL (3.2-4.5); BILIRUBIN,TOTAL 0.7 MG/DL (0.1-1.0); CALCIUM 9.8 MG/DL (8.5-10.1); CREATININE SERUM 1.07 MG/DL (0.60-1.30); POTASSIUM 3.8 MMOL/L (3.6-5.0); TOTAL PROTEIN 7.6 GM/DL (6.4-8.2)
--- NOTE | 2023-02-27 17:23 | ED General ---
General Chief Complaint: Cough/Cold/Flu Symptoms Stated Complaint: NAUSOUS, ROJAS, COUGH Nursing Triage Note: C/O HEADACHE, COUGH AND NAUSEA X 3 DAYS. Source of Information: Patient Exam Limitations: No Limitations History of Present Illness Date Seen by Provider: Feb 27, 2023 Time Seen by Provider: 17:05 Initial Comments This is a very pleasant otherwise healthy 72-year-old female who presents to the emergency department with headache and nausea myalgias and malaise. States she just generally does not feel well. Patient retired from a local assisted living facility yesterday. She states she woke up today not feeling well. Patient states she is not aware of any COVID or influenza outbreak in the nursing facility. She denies diarrhea or constipation no abdominal pain states she does have some nausea no chest pain or shortness of breath mild sore throat, diffuse headache no nuchal rigidity no tender lymphadenopathy no ear pain or visual dis turbance. Will evaluate for COVID, influenza as well as labs for electrolyte abnormalities or UTI and provide IV fluids for symptom control, patient agrees. Timing/Duration: 1 Day Severity: Moderate Associated Systoms: Headaches, Malaise, Nausea/Vomiting Allergies and Home Medications Allergies Coded Allergies: cefuroxime (Verified Allergy, Unknown, PATIENT HAS RECEIVED ROCEPHIN W/O ISSUE, 03/14/16) Uncoded Allergies: PAPER TAPE (Adverse Reaction, Unknown, 09/08/14) Patient Home Medication List Home Medication List Reviewed: Yes Acetaminophen (Acetaminophen) 500 Mg Tablet, 1,000 MG PO Q6H PRN for PAIN-MILD, (Reported) Entered as Reported by: CECILIA MICHAELS on 03/14/16 0910 Albuterol Sulfate (Ventolin Hfa) 1 Puff Puff, 1-2 PUFF IH Q4H PRN for SHORTNESS OF BREATH, (Reported) Entered as Reported by: KEN MASSEY on 12/17/18 0844 Aspirin (Aspirin) 81 Mg Tab.chew, 81 MG PO DAILY Prescribed by: KENRICK WILDE on 12/23/20 1407 Carisoprodol (Soma) 350 Mg Tablet, 350 MG PO HS PRN for MUSCLE SPASMS, (Reported) Entered as Reported by: CECILIA MICHAELS on 03/14/16 0910 Fluticasone Propionate (Flonase Allergy Relief) 9.9 Ml [place].susp, 1 SPRAY NSEACH HS PRN for ALLERGIES, (Reported) Entered as Reported by: CECILIA MICHAELS on 03/14/16 09 Glimepiride (Glimepiride) 4 Mg Tablet, 4 MG PO DAILY, (Reported) Entered as Reported by: KEN MASSEY on 12/17/18 08 Glimepiride (Glimepiride) 2 Mg Tablet, 2 MG PO DAILY Prescribed by: DAYANARA WHITLOCK on 05/17/21 1207 Lisinopril/Hydrochlorothiazide (Lisinopril-Hctz 20-12.5 mg Tab) 1 Each Tablet, 1 TAB PO BID, (Reported) Entered as Reported by: KEN MASSEY on 12/17/18843 Loratadine (Loratadine) 10 Mg Tablet, 10 MG PO DAILY PRN for ALLERGIES, (Reported) Entered as Reported by: CECILIA MICHAELS on 03/14/16909 Meloxicam (Meloxicam) 15 Mg Tablet, 15 MG PO UD, (Reported) Entered as Reported by: KEN MASSEY on 12/17/18843 Metoprolol Tartrate (Metoprolol Tartrate) 100 Mg Tablet, 100 MG PO HS, (Reported) Entered as Reported by: CECILIA MICHAELS on 03/14/16927 Molnupiravir (Molnupiravir (Eua)) 200 Mg Capsule, 800 MG PO BID Prescribed by: José Thorne on 02/27/231755 Montelukast Sodium (Singulair) 10 Mg Tablet, 10 MG PO HS, (Reported) Entered as Reported by: CECILIA MICHAELS on 03/14/16927 Ondansetron (Ondansetron Odt) 4 Mg Tab.rapdis, 4 MG SL Q4H PRN for NAUSEA/VOMITING Prescribed by: José Thorne on 02/27/231755 Polyvinyl Alcohol/Povidone/Pf (Refresh Classic Eye Drops) 1 Each Droperette, 1 DROP OU TID PRN for dry eyes, (Reported) Entered as Reported by: KEN MASSEY on 12/17/18843 Tramadol HCl (Tramadol HCl) 50 Mg Tablet, 50 MG PO Q4H PRN for PAIN Prescribed by: Lanette Tracy on 01/04/23 151 Tramadol HCl (Tramadol HCl) 50 Mg Tablet, 50 MG PO Q4H PRN for PAIN Prescribed by: CIARA RUFFIN on 01/05/23 1303 Review of Systems Review of Systems Constitutional: see HPI EENTM: nose congestion Respiratory: see HPI; No hemoptysis, No short of breath, No wheezing Cardiovascular: No chest pain, No edema, No palpitations, No syncope Gastrointestinal: nausea Genitourinary: no symptoms reported Musculoskeletal: muscle pain Skin: no symptoms reported Psychiatric/Neurological: Headache Hematologic/Lymphatic: No Symptoms Reported Immunological/Allergic: no symptoms reported All Other Systems Reviewed Negative Unless Noted: Yes Past Hvfhndz-Yjrwrj-Pwwknd Hx Patient Social History Tobacco Use?: No Use of E-Cig and/or Vaping dev: No Substance use?: No Alcohol Use?: No Pt feels they are or have been: No Immunizations Up To Date First/Initial COVID19 Vaccinat: 3 SHOTS Second COVID19 Vaccination [place]on: MODERN Third COVID19 Vaccination Date: Past Medical History Surgery/Hospitalization HX: PMH: HTN, DM, HIGH CHOL Surgeries: Yes (jul 2014 left total knee, cataract) Cardiac, Eye Surgery, Gallbladder, Hysterectomy, Joint Replacement, Orthopedic Respiratory: Yes Pneumonia, Chronic Bronchitis Cardiac: Yes (heart cath with no intervention) Hypertension Neurological: No Reproductive Disorders: No [employer] History: Hysterectomy Sexually Transmitted Disease: No Bladder Infection Gastrointestinal: Yes Gastroesophageal Reflux Musculoskeletal: Yes (LEFT KNEE SCOPE,) Chronic Back Pain Endocrine: Yes Diabetes, Insulin dep Cataract Cancer: No Psychosocial: No Integumentary: No Blood Disorders: No Family Medical History Cancer 03 FATHER (PROSTATE) Cataract 03 MOTHER Chest pain 03 MOTHER Congestive heart failure 03 FATHER Family history: Arthritis 03 FATHER 03 MOTHER Family history: Asthma 03 MOTHER Family history: Hypertension 03 FATHER 03 MOTHER Heart disease 03 FATHER Myocardial infarction 03 MOTHER Prostate cancer 03 FATHER Stroke 03 MOTHER No Family History of: Abdominal aortic aneurysm [place]rail's disease Alcoholism Aphasia Cancer of colon Congenital heart disease Cystic fibrosis Dementia Dysphagia Family history: Allergy Family history: Alzheimer's disease Family history: Breast disease Family history: Cardiovascular disease Family history: Coronary thrombosis Family history: Diabetes mellitus Family history: Gastrointestinal disease Family history: Glaucoma Family history: Osteoporosis Family history: Thyroid disorder Headache Hearing loss Hereditary disease History of - anemia History of - disorder History of - respiratory disease History of drug abuse Human immunodeficiency virus (HIV) seropositivity Hypercholesterolemia Infertile Kidney disease Malignant neoplasm of lung Parkinson's disease Psychotic disorder Seizure disorder Tuberculosis Visual impairment Physical Exam Vital Signs Vital Signs - First Documented Capillary Refill : Less Than 3 Seconds Height, Weight, BMI Height: 5'1.00" Weight: 199lbs. 1.6oz. [id number]; 32.00 BMI Method:Stated General Appearance: No Apparent Distress, WD/WN Eyes: Bilateral Eye Normal Inspection, Bilateral Eye PERRL, Bilateral Eye EOMI HEENT: PERRL/EOMI, TMs Normal, Normal ENT Inspection, Pharynx Normal, Moist Mucous Membranes Neck: Full Range of Motion, Normal Inspection, Non Tender, Supple Respiratory: Chest Non Tender, Lungs Clear, Normal Breath Sounds, No Accessory Muscle Use, No Respiratory Distress Cardiovascular: Regular Rate, Rhythm, No Edema, No Murmur, Normal Peripheral Pulses Gastrointestinal: Normal Bowel Sounds, Non Tender, Soft Back: Normal Inspection, No CVA Tenderness, No Vertebral Tenderness Extremity: Normal Capillary Refill, Normal Inspection, Normal Range of Motion, Non Tender, No Calf Tenderness, No Pedal Edema Neurologic/Psychiatric: Alert, Oriented x3, No Motor/Sensory Deficits, Normal Mood/Affect Skin: Normal Color, Warm/Dry Lymphatic: No Adenopathy Progress/Results/Core Measures Suspected Sepsis SIRS Temperature: Pulse: 68 Respiratory Rate: 18 Laboratory Tests 02/27/23 16:48: White Blood Count 5.4 Blood Pressure 154 /112 Mean: 126 Laboratory Tests 02/27/23 16:48: Creatinine 1.07, Platelet Count 199, Total Bilirubin 0.7 Results/Orders Lab Results Laboratory Tests Test 02/27/23 16:48 Range/Units White Blood Count 5.4 4.3-11.0 10^3/uL Red Blood Count 4.95 3.80-5.11 10^6/uL Hemoglobin 13.2 11.5-16.0 g/dL Hematocrit 42 35-52 % Mean Corpuscular Volume 85 80-99 fL Mean Corpuscular Hemoglobin 27 25-34 pg Mean Corpuscular Hemoglobin Concent 31 L 32-36 g/dL Red Cell Distribution Width 12.3 10.0-14.5 % Platelet Count 199 130-400 10^3/uL Mean Platelet Volume 9.4 9.0-12.2 fL Immature Granulocyte % (Auto) 0 % Neutrophils (%) (Auto) 80 H 42-75 % Lymphocytes (%) (Auto) 8 L 12-44 % Monocytes (%) (Auto) 10 0-12 % Eosinophils (%) (Auto) 0 0-10 % Basophils (%) (Auto) 1 0-10 % Neutrophils # (Auto) 4.3 1.8-7.8 10^3/uL Lymphocytes # (Auto) 0.4 L 1.0-4.0 10^3/uL Monocytes # (Auto) 0.5 0.0-1.0 10^3/uL Eosinophils # (Auto) 0.0 0.0-0.3 10^3/uL Basophils # (Auto) 0.1 0.0-0.1 10^3/uL Immature Granulocyte # (Auto) 0.0 0.0-0.1 10^3/uL Sodium Level 137 135-145 MMOL/L Potassium Level 3.8 3.6-5.0 MMOL/L Chloride Level 102 98-107 MMOL/L Carbon Dioxide Level 22 21-32 MMOL/L Anion Gap 13 5-14 MMOL/L Blood Urea Nitrogen 17 7-18 MG/DL Creatinine 1.07 0.60-1.30 MG/DL Estimat Glomerular Filtration Rate 55 BUN/Creatinine Ratio 16 Glucose Level 119 H 70-105 MG/DL Calcium Level 9.8 8.5-10.1 MG/DL Corrected Calcium 9.6 8.5-10.1 MG/DL Total Bilirubin 0.7 0.1-1.0 MG/DL Aspartate Amino Transf (AST/SGOT) 15 5-34 U/L Alanine Aminotransferase (ALT/SGPT) 12 0-55 U/L Alkaline Phosphatase 85 40-136 U/L Total Protein 7.6 6.4-8.2 GM/DL Albumin 4.3 3.2-4.5 GM/DL Lipase 12 8-78 U/L Influenza Type A (RT-PCR) Not Detected Not Detecte Influenza Type B (RT-PCR) Not Detected Not Detecte SARS-CoV-2 RNA (RT-PCR) Detected H Not Detecte My Orders Orders - JOSÉ THORNE W DO Covid 19 Inhouse Test (02/27/23 16:40) Influenza A And B By Pcr (02/27/23 16:40) Comprehensive Metabolic Panel (02/27/23 16:48) Lipase (02/27/23 16:48) Ua Culture If Indicated (02/27/23 16:48) Cbc With Automated Diff (02/27/23 16:48) Acetaminophen Tablet (Acetaminophen Ta (02/27/23 17:00) Ed Iv/Invasive Line Start (02/27/23 16:48) Ns Iv 1000 Ml (Ns Iv 1000 Ml) (02/27/23 17:00) Acetaminophen Tablet (Acetaminophen Ta (02/27/23 17:01) Medications Given in ED Current Medications Medications Dose Ordered Sig/Mihai Route Start Time Stop Time Status Last Admin Dose Admin Acetaminophen 1,000 mg ONCE ONCE PO 02/27/23 17:00 02/27/23 17:01 DC 02/27/23 16:58 1,000 MG Vital Signs/I&O 02/27/23 02/27/23 02/27/23 16:46 16:46 18:04 Temp 37.1 37.0 Pulse 68 81 Resp 18 20 B/P (MAP) 154/112 (126) 173/76 Pulse Ox 97 95 O2 Delivery Room Air Room Air Room Air Capillary Refill : Less Than 3 Seconds Blood Pressure Mean: 126 Progress Note : Time: 17:51 Progress Note Patient resting in the emergency department. Blood work returned all normal. She is negative for flu but positive for COVID. I discussed this with the patient I will place her on monoclonal antibody therapy, suggested NAC, multivitamin with selenium and zinc, vitamin A, C, E. I will prescribe Zofran as well for potential nausea she agrees with this plan. Advised she has had symptoms for 3 days she must quarantine for 3 more days she will be off quarantine come Thursday. Patient voices understanding and agrees. Advised return immediately for any problems or concerns otherwise follow-up with primary care, patient agrees. Departure Impression Primary Impression: COVID-19 Disposition: 01 HOME, SELF-CARE Condition: Stable Departure-Patient Inst. Referrals: KAREN BERMUDEZ DO (PCP/Family) Primary Care Physician Patient Instructions: COVID-19 (DC), COVID-19 overview, Molnupiravir FDA Fact Sheet Scripts Ondansetron (Ondansetron Odt) 4 Mg Tab.rapdis 4 MG SL Q4H PRN for NAUSEA/VOMITING for 7 Days, #30 TAB Prov: JOSÉ THORNE DO 02/27/23 Molnupiravir (Molnupiravir (Eua)) 200 Mg Capsule 800 MG PO BID for 5 Days, #40 CAP Prov: JOSÉ THORNE DO 02/27/23 JOSÉ THORNE DO Feb 27, 2023 17:23
[2023-02-27] MEDS ORDERED: MOLN200C PO (17:56)
[2023-02-27] MEDS ORDERED: ONDA4TAB11 SL (17:56)
[2023-02-27 18:04] VITALS: BP 173/76
== END 2023-02-27 18:10 | disposition home or self-care (01) ==
LOC: EDUNIT# 16:35 → ER 16:37
DX: U07.1 COVID-19 (principal); R51.9 Headache, unspecified; R11.0 Nausea; R53.81 Other malaise; E11.9 Type 2 diabetes mellitus without complications; Z79.4 Long term (current) use of insulin
CPT/HCPCS: 36415; 80053; 83690; 85025; 87636

== ENCOUNTER 2023-04-21 12:57 | Outpatient (RCR) | payer MEDICARE ==
[~2023-04-21 12:57] MED LIST changes: +MOLN200C PO; +ONDA4TAB11 SL
== END 2023-04-28 | disposition home or self-care (01) ==
PROVIDERS: ATTEND Internal Medicine
DX: M25.50 Pain in unspecified joint (principal); R26.81 Unsteadiness on feet; I10 Essential (primary) hypertension; E11.9 Type 2 diabetes mellitus without complications

== ENCOUNTER 2023-05-01 13:46 | Outpatient (RCR) | payer MEDICARE | END 2023-05-28 | disposition home or self-care (01) | PROVIDERS: ATTEND Internal Medicine | DX: M25.511 Pain in right shoulder (principal); M25.512 Pain in left shoulder; M54.16 Radiculopathy, lumbar region; I10 Essential (primary) hypertension; E11.9 Type 2 diabetes mellitus without complications ==